=== PATIENT | male | born 1955 | race Caucasian/White ===

== ENCOUNTER 2019-08-29 19:59 | Inpatient (IN) | payer MEDICARE, SELFPAY ==
[2019-08-29] VITALS (22 sets, daily range): BP systolic 116–145; BP diastolic 68–80; PULSE 61–76; RESP 9–18; TEMP 36.5–36.9; O2SAT 88–100
[2019-08-29] MEDS: Ketorolac 15 MG/ML VIAL IVP (20:10)
--- NOTE | 2019-08-29 20:13 | ED.GENADUL_ITS ---
Discharge Plan Disposition Patient Disposition: [facility] INPATIENT Condition: Stable Discharge Details Chief Complaint: Abd Prob Clinical Impression: Bowel obstruction Primary Care Provider: Olvin Alicia ED Provider: Brian Hickey Home Meds and New Rx's Prescriptions: New oxycodone 5 mg tablet 5 mg PO TID PRN (Reason: pain) Qty: 12 RF: 0 Continued celecoxib [Celebrex] 200 MG capsule 200 mg PO DAILY RF: 0 aspirin 325 MG tablet 325 mg PO DAILY RF: 0 tamsulosin [Flomax] 0.4 mg Capsule 0.4 mg PO DAILY RF: 0 bismuth subsalicylate [Pepto-Bismol] 262 mg/15 mL Suspension PRNRF: 0 metoprolol succinate 25 mg Tablet Extended Release 24 Hr 25 mg PO DAILY RF: 0 Medical Decision Making 64 yo male who has hx of arthritis, on metoprolol for pvc's per pt, no prior abdominal surgeries, comes in with mid to epigastric pain since yesterday that he has never had before. Denies radiation of pain, vomit, and can't think of anything that makes it better or worse. He does have epigastric pain and mid abdominal discomfort and ruq tenderness on exam, no lower abdominal tenderness. Given his degree of pain will obtian lab work and ct to eval for pancreatitis and choleystitis among other pathology. Pt remains stable and pain is gone. Lab work unremarkable. His CT shows partial low grade sbo. He has mild mid abdominal tendernress now without guarding. P atient initially wanted to go home but his pain significantly increased and prefers to stay will consult with general surgery Spoke with Dr. Saldivar who agrees on holding on NG tube. She requests hospitalist admission since unlikely surgical case. Spoke with Dr. Roger who accepts for admission Differential Diagnosis Differential Diagnosis: pancreatitis, acs, cholecystitis Imaging Data Radiologic Study: Attestation: I personally reviewed and interpreted this imaging study as follows: Imaging: CT Scan Radiologist's impression: IMPRESSION: Partial low grade small bowel obstruction involving predominantly loops of jejunum in the left hemiabdomen, with a gradual transition to nondistended small bowel at the level of the ileum. The nondistended distal ileal loops appear to have mild wall thickening and adjacent pericolonic stranding, which could be related to distal ileitis and perhaps the underlying cause of the low grade obstruction. Additionally, the dilated jejunal loops demonstrate fecalization, which raises the question of an extended time frame for the development of this partial SBO. There is no evidence of bowel perforation noted at this time. Close followup is recommended. Lab Data Lab results reviewed: Yes I reviewed the patient's lab results. ECG Data Attestation: I personally reviewed and interpreted this ECG (s) as follows: Prior ECG tracings: not available for review Interpretation: sinus rhythm, rate of 70, pr 166, no acute st t wave ischemic findings HPI General Mode of arrival: ambulatory . Date/Time Provider Initiated Documentation: 08/29/19 20:01 . Limitations to Documentation: no limitations . Information obtained by: patient . History of Present Illness 64 year old M presents to the emergency department with the chief complaint of abdominal pain, described as moderate and severe, with intensity rated at 9. Quality is described as sharp, and is localized to the abdomen. Patient reports no radiation. Patient started experiencing this day(s) (1) and it has been constant. No relieving factors improve symptom(s), No exacerbating factors reported . Patient notes no other symptoms.. Patient did receive the following treatments prior to arrival, none Related Data Home Medications Medication Instructions Recorded Confirmed aspirin 325 mg PO DAILY 07/10/16 08/29/19 celecoxib [Celebrex] 200 mg PO DAILY 07/10/16 08/29/19 bismuth subsalicylate mg PRN 08/29/19 [Pepto-Bismol] metoprolol succinate 25 mg PO DAILY 08/29/19 08/29/19 oxycodone 5 mg PO TID PRN #12 tab 08/29/19 tamsulosin [Flomax] 0.4 mg PO DAILY 08/29/19 08/29/19 Previous Rx's Medication Instructions Recorded oxycodone 5 mg PO TID PRN #12 tab 08/29/19 Allergies Allergy/AdvReac Type Severity Reaction Status Date / Time No Known Allergies Allergy Unverified 08/29/19 20:28 Review of Systems Review of Systems ROS Unobtainable: All systems reviewed & are unremarkable except as noted in HPI and below Constitutional Constitutional: Denies chills, Denies fever(s) and Denies weakness Cardiovascular Cardiovascular: Denies chest pain and Denies dyspnea Respiratory Respiratory: Denies dyspnea Gastrointestinal Gastrointestinal: Denies nausea Genitourinary Genitourinary: Denies dysuria Neurologic Neurologic: Denies weakness PFSH Social History Smoking/Tobacco Use Status: Former Tobacco Use Drug use: Never Do you feel safe at home: Yes Do you feel safe in your relationship?: Yes Exam Const General: no acute distress Orientation: alert HENMT Head: normal to inspection Ears: external ears normal General nose exam: external nose normal Mouth: moist mucous membranes Eyes General: appearance normal, both eyes and all related structures Neck Neck: normal visual inspection Resp Effort & Inspection: normal respiratory effort and able to speak in complete sentences Cardio Rate: regular rate GI Palpation: soft Skin General skin exam: no rashes or lesions noted Neuro General: alert and oriented x3 Extrem General: normal to inspection Psych Mental Status: mental status grossly normal
[2019-08-29] MEDS: Normal Saline 1,000 ML 1000 ML IV (20:18)
[2019-08-29 20:22] LABS: Abs Immature Grans 0.02 k/cumm (0.0-0.09); Absolute Basophil Count 0.02 k/cumm (0.0-0.2); Absolute Eosinophil Count 0.08 k/cumm (0.0-0.7); Absolute Lymphocyte Count 1.13 k/cumm (1.2-3.4); Absolute Monocyte Count 0.61 k/cumm (0.11-0.7); Absolute Neutrophil Count 6.69 k/cumm (1.2-6.7); Basophils % 0.2; Eosinophils % 0.9; HGB 14.6 g/dL (13.5-17.5); Immature Grans % 0.2; Lymphocytes % 13.2; Mean Corpuscular Hemoglobin 30.9 pg (27.0-33.0); Mean Corpuscular Volume 91.1 fL (80-95); Mean Platelet Volume 8.9 fL (8.0-11.0); Monocytes % 7.1; Neutrophils % 78.4; Platelet Count 251 x1000/uL (130-400); RBC 4.72 m/cumm (4.50-6.00); RBC Distribution Width 12.6 % (11.8-14.1); White Blood Cell Count 8.55 k/cumm (4.4-10.8)
[2019-08-29 20:36] LABS: PTT Activated 25.5 sec (21.0-31.4); Prothrombin Time 9.9 sec (9.3-11.0)
[2019-08-29 20:39] LABS: Bilirubin, Total 0.8 mg/dL (0.2-1.0)
[2019-08-29] MEDS: Omnipaque 350 MG/ML 100 ML BTL IJ (20:39)
[2019-08-29 20:43] LABS: ALT 25 U/L (16-63); AST 18 U/L (15-37); Alkaline Phosphatase 77 U/L (46-116); Anion Gap 8.7 mmol/L (3-11); BUN 18 mg/dL (7-18); Bilirubin, Total 0.8 mg/dL (0.2-1.0); CO2 25.3 mmol/L (21.0-32.0); CREATININE 1.34 mg/dL (0.70-1.30); Calcium 9.2 mg/dL (8.5-10.1); Chloride 105 mmol/L (98-107); Glucose 108 mg/dL (70-100); Lipase 67 U/L (73-393); Magnesium 1.8 mg/dL (1.8-2.4); Potassium 4.1 mmol/L (3.5-5.1); Sodium 139 mmol/L (136-145); Total Protein 8.1 g/dL (6.4-8.2)
--- NOTE | 2019-08-29 20:45 | DI.CT_ITS ---
EXAM: CT ABDOMEN PELVIS W CLINICAL HISTORY: mid abdominal pain. TECHNIQUE: Imaging Protocol: Axial computed tomography images with coronal and sagittal reformatted images were created and reviewed CONTRAST MATERIAL: Intravenous: Omnipaque 350 Contrast volume:100 mL contrast route:IV - Oral: No COMPARISON: No exams were available for comparison FINDINGS: ABDOMEN: Lung Bases: No acute pulmonary process is identified in the lung bases. There is a small hiatal molly ia. Liver: Normal density. No masses identified. Gallbladder and biliary tract: No radiodense calculus or dilation. Pancreas: There is no evidence of a pancreatic mass. There is mild fatty infiltration of the pancrea s. Spleen: Normal. Kidneys: Normal size, contour and axis. No radiodense stones or obstructive uropathy. Small parapelvi c cysts are present bilaterally. Adrenal glands: No masses seen. Abdominal Aorta: Abdominal portion non-dilated. Lymph nodes: Unremarkable. PELVIS: Bladder: Grossly unremarkable. There is limited visualization of the urinary bladder due to the patel fact related to the patient's bilateral total hip replacements. The reproductive organs are unremark able. Bowel: There are moderately dilated loops of small bowel proximally with normal caliber ileal loops o f bowel. There does appear to be mild wall thickening of the loops of small bowel. This may reflect an ileitis. There is mild stranding in the surrounding soft tissues. There is diverticulosis seen in the colon but no evidence of acute diverticulitis. There is no evidence of an acute appendicitis. Peritoneal cavity: There is a trace amount of free fluid in the pelvis. This is likely reactive. No focal fluid collection is seen to suggest an abscess. Bones: Multilevel degenerative changes are seen in the spine. Reproductive organs: Unremarkable as visualized. Impression: Findings suggestive of a small bowel obstruction with transition around the junction of the jejunum a nd ileum. Mild wall thickening and adjacent soft tissue stranding in the ileum suspicious for an ileitis. Follow-up is recommended. DATA REPOSITORY: All CT scans at this facility are submitted to the National Radiology Data Registry (NRDR) Dose Index Registry (DIR) with the [employer] ([employer]). RADIATION OPTIMIZATION: All CT scans at this facility use at least one of these dose optimization te chniques: automated exposure control; mA and/or kV adjustment per patient size (includes targeted exa ms where dose is matched to clinical indication); or iterative reconstruction.
[2019-08-29 20:55] LABS: Troponin I < 0.05 ng/mL (0.00-0.06)
--- NOTE | 2019-08-29 21:05 | DI.VRAD_ITS ---
PROCEDURE INFORMATION: Exam: CT Abdomen and pelvis with contrast Exam date and time: 08/29/2019 8:32 PM Clinical history: 64 years old, male; Localized; Prior surgery; Surgery date: 6+ months; Surgery type: Bilateral hips; Patient HX: Mid abdominal pain starting yesterday and increasing. TECHNIQUE: Imaging protocol: Computed tomography of the abdomen and pelvis with intravenous contrast. Radiation optimization: All CT scans at this facility use at least one of these dose optimization techniques: automated exposure control; mA and/or kV adjustment per patient size (includes targeted exams where dose is matched to clinical indication); or iterative reconstruction. Contrast material: OMNIPAQUE 350; Contrast volume: 100 ml; Contrast route: IV; COMPARISON: No relevant prior studies available. FINDINGS: Limitations: Evaluation of the pelvis is limited due to streak artifact from bilateral hip arthroplasty. Lungs: The visualized portions of the lung bases demonstrate no acute disease. Mediastinum: A small hiatal hernia is present. Liver: Normal. No mass. Gallbladder and bile ducts: Normal. No calcified stones. No ductal dilation. Pancreas: There is diffuse, benign fatty infiltration of the pancreas. Spleen: Normal. No splenomegaly. Adrenals: Normal. No mass. Kidneys and ureters: Left parapelvic renal cysts are appreciated. There is bilateral renal hilar lipomatosis. No acute renal findings. No obstructive uropathy. Stomach and bowel: There are several dilated loops of small bowel in the left hemiabdomen, measuring up to 3.8 cm in greatest diameter. There is fecalization noted to several of these dilated bowel loops. There is a gradual transition to nondistended small bowel, with several collapsed small bowel loops in the right lower quadrant demonstrating wall thickening, subtle mucosal hyperenhancement, and mild engorgement of the vasa recta. Appendix: No evidence of appendicitis. Intraperitoneal space: Trace abdominopelvic ascites are present, most likely reactive. No fluid collections are appreciated. No pneumoperitoneum. Vasculature: The vasculature demonstrates diffuse moderate atherosclerotic calcification. Lymph nodes: Unremarkable. No enlarged lymph nodes. Bladder: Urinary bladder is difficult to evaluate due to streak artifact, however the visualized segments appear unremarkable. Reproductive: Unremarkable as visualized. Bones/joints: No acute skeletal pathology. Moderate multilevel degenerative changes of the spine, as manifested by multilevel anterior osteophytes and multilevel decrease in intervertebral disc space. Soft tissues: Unremarkable. IMPRESSION: Partial low grade small bowel obstruction involving predominantly loops of jejunum in the left hemiabdomen, with a gradual transition to nondistended small bowel at the level of the ileum. The nondistended distal ileal loops appear to have mild wall thickening and adjacent pericolonic stranding, which could be related to distal ileitis and perhaps the underlying cause of the low grade obstruction. Additionally, the dilated jejunal loops demonstrate fecalization, which raises the question of an extended time frame for the development of this partial SBO. There is no evidence of bowel perforation noted at this time. Close followup is recommended. THIS REPORT CONTAINS FINDINGS THAT MAY BE CRITICAL TO PATIENT CARE. The findings were verbally communicated via telephone conference with Brian Hickey at 9:04 PM EDT on 08/29/2019. The findings were acknowledged and understood. Dictated and Authenticated by: Paul Jolly MD. Ordering:RANDALL Torres MD
[2019-08-29] MEDS: HYDROmorphone 2 MG/ML VIAL 1 MG IVP (21:46)
[2019-08-29] MEDS: Normal Saline 1,000 ML 150 ML IV (22:09)
[2019-08-29] MEDS: Metoprolol CR 25 MG TABCR PO (23:59)
[2019-08-30] MEDS: Pantoprazole 40 MG VIAL IVP ×2 (00:01→23:59)
[2019-08-30] MEDS: Heparin 5,000 UNITS/ML VIAL 5000 UNITS SC ×4 (00:01→23:59)
[2019-08-30] MEDS: Acetaminophen 325 MG TAB PO (00:19)
[2019-08-30 03:00] VITALS: BP 106/61; PULSE 55; RESP 17; TEMP 36.2; O2SAT 99
[2019-08-30] MEDS: HYDROmorphone 2 MG/ML VIAL 1 MG IVP ×5 (03:06→18:14)
[2019-08-30] MEDS: Normal Saline Flush 10 ML SYR ×2 (03:07)
[2019-08-30] MEDS: Normal Saline 1,000 ML 150 ML IV ×3 (04:24→18:15)
[2019-08-30 07:09] LABS: Abs Immature Grans 0.01 k/cumm (0.0-0.09); Absolute Basophil Count 0.01 k/cumm (0.0-0.2); Absolute Lymphocyte Count 1.41 k/cumm (1.2-3.4); Absolute Monocyte Count 0.41 k/cumm (0.11-0.7); Absolute Neutrophil Count 3.42 k/cumm (1.2-6.7); Basophils % 0.2; Eosinophils % 1.9; HCT 38.3 % (40.0-50.0); Immature Grans % 0.2; Lymphocytes % 26.3; Mean Corp. HGB Concentration 33.9 g/dL (32.0-36.0); Mean Corpuscular Hemoglobin 31.4 pg (27.0-33.0); Mean Corpuscular Volume 92.5 fL (80-95); Mean Platelet Volume 9.1 fL (8.0-11.0); Monocytes % 7.6; Neutrophils % 63.8; Platelet Count 224 x1000/uL (130-400); RBC 4.14 m/cumm (4.50-6.00); RBC Distribution Width 12.6 % (11.8-14.1); White Blood Cell Count 5.36 k/cumm (4.4-10.8)
--- NOTE | 2019-08-30 07:26 | HPE_ITS ---
Date of service: 08/30/19 Time of Service: 07:26 Assessment and Plan Assessment and plan (1) Partial small bowel obstruction: Status: Acute Assessment and plan: Consult general surgery. Patient is NPO. Clinically, does not appear to be requiring emergent surgical intervention. (2) DALE (dyspnea on exertion): Status: Acute Assessment and plan: Given h/o PVC's, will obtain an echo. Will need a nuclear stress test once the acute intraabdominal issue has resolved. (3) Chest pain: Status: Acute Assessment and plan: Episodic subcostal L-sided chest pain, on and off for 18 months. EKG negative, and chest pain is not associated with presentation to the hospital on this admission. No need for trending troponins, but would benefit from an echo and an outpatient stress test. If ischemic workup is negative, given a strong family history of thromboembolic disease, consider a CTA vs VQ scan of the chest (VQ scan is better for chronic thromboembolic disease). Also, check fasting lipid panel. Continue ASA, metoprolol. (4) HTN (hypertension), benign: Status: Acute Assessment and plan: Continue metoprolol. (5) PVCs (premature ventricular contractions): Status: Acute Assessment and plan: As above - obtain an echo, continue metoprolol. (6) DVT prophylaxis: Status: Acute Assessment and plan: Heparin SC, TEDs, SCDs (7) Discharge planning issues: Status: Acute Assessment and plan: Full code History of Present Illness History of Present Illness Chief Complaint: Abdominal pain Narrative: Mr King is a 64 year old male with PMHx of TIA in 2010, on asa 325 mg every other day and not on cholesterol therapy, as well as HTN, PVC's, BPH, Osteoarthritis, who presented to [facility] ED yesterday evening after about 24 hours of epigastric abdominal pain. The patient states that the pain started the night before last. At 8 am yesterday, he had three bowel movements (unusual for him), first being solid, and the other two being diarrhea. He did not look at the bowel movements to see what color they were. Since then, he had not passed gas or had another bowel movement. He denies any nausea or vomiting. The pain was tolerable (4/10) until the patient ate his first meal of the day at 3 pm (a bagel). By 5 pm, he states the pain was so bad he was doubled over. Because of this pain, he left his bowling game and initially planned on driving home to [place], but then turned around and drove himself to the hospital. Here, he was found to have a partial low grade small bowel obstruction. The patient was admitted to the hospitalist medicine service with general surgery seeing the patient in consultation. By the time I am seeing him, he is pain free and comfortable. Of note, other than bilateral inguinal surgery repairs, the patient has not had any intraabdominal surgeries. He has a strong family history of colon cancer. His last colonoscopy 6 years ago revealed a polyp which could not be resected. He has had difficulty getting a repeat colonoscopy. Additionally, the patient reports occasional L-sided chest pain (points to the area under the left ribs when talking about this) for the last 18 months and worsening dyspnea on exertion for the last 3 months. He is not having either the chest pain nor shortness of breath at this time. He is not sure if he has had an echocardiogram - it would have been at the [facility]. He has had several stress tests, the last one being in 2010 (EKG stress test). He has never had a nuclear stress test. Review of Systems Review of Systems Narrative: 12 systems reviewed. Pertinent positives and negatives are as per HPI. [facility] Medical History (Updated 08/30/19 @ 07:55 by Halie Roger MD) BPH (benign prostatic hyperplasia) (Chronic) HTN (hypertension), benign (Acute) Obesity (BMI 30-39.9) (Acute) Osteoarthritis (Chronic) PVCs (premature ventricular contractions) (Acute) TIA (transient ischemic attack) (Acute) Surgical History (Updated 08/30/19 @ 07:42 by Halie Roger MD) H/O arthroscopy of shoulder (Acute) multiple bilateral arthroscopies H/O bilateral inguinal hernia repair (Acute) H/O colonoscopy with polypectomy (Acute) x2; last 6 years ago, a polyp could not be removed H/O hand surgery (Acute) H/O prostate biopsy (Acute) History of ankle surgery (Acute) History of revision of total replacement of left knee joint (Acute) History of tonsillectomy (Chronic) History of total left hip replacement (Acute) History of total left knee replacement (Acute) History of total right hip arthroplasty (Acute) Rupture of biceps tendon (Acute) left, s/p repair S/P bilateral cataract extraction (Acute) S/P right knee arthroscopy (Acute) Family History (Updated 08/30/19 @ 07:45 by Halie Roger MD) Father Heart disease stents placed in the 60's Factor 5 Leiden mutation, heterozygous Hyperlipidemia Hypertension Colon cancer Lung cancer Bladder cancer Sister Factor 5 Leiden mutation, heterozygous Hypertension Cancer with unknown primary site Sister Factor 5 Leiden mutation, heterozygous Hypertension Sister Factor 5 Leiden mutation, heterozygous Brother Factor 5 Leiden mutation, heterozygous Maternal Grandmother Stroke Maternal Uncle Colon cancer Maternal Grandfather Colon cancer Paternal Grandmother Spinal cord cancer Social History (Updated 08/30/19 @ 07:46 by Halie Roger MD) Smoking/Tobacco Use Status: Former Tobacco Use Alcohol Intake: current Alcohol Intake frequency: holidays/special occasions only Alcohol type: beer Drug use: Never Do you feel safe at home: Yes Do you feel safe in your relationship?: Yes Meds Home Medications and Allergies Home Medications Medication Instructions Recorded Confirmed Type aspirin 325 mg PO DAILY 07/10/16 08/29/19 History celecoxib [Celebrex] 200 mg PO DAILY 07/10/16 08/29/19 History metoprolol succinate 25 mg PO DAILY@1700 08/29/19 08/30/19 History tamsulosin [Flomax] 0.4 mg PO HS 08/29/19 08/30/19 History finasteride 5 mg PO DAILY 08/30/19 08/30/19 History Allergies Allergy/AdvReac Type Severity Reaction Status Date / Time No Known Allergies Allergy Unverified 08/29/19 20:28 Exam Narrative Exam Narrative: General: Very pleasant obese male, laying comfortably flat in bed Neurological: A&OX3, no focal deficits Psychiatric: appropriate speech pattern/content Skin: intact HEENT: Atraumatic, normocephalic, EOMI, dry MM, Clear oropharynx, no submandibular or cervical lymphadenopathy, no goiter or JVD Cardiovascular: RRR, no m/r/g Lungs: CTAB Gastrointestinal: abdomen is soft, nondistended, + loud high pitched bowel sounds, nontender to palpation Extremities: no e/c/c BLE's, 1+ pedal pulses B Results Imaging Additional studies: CT abdomen/pelvis 08/29/19: Partial low grade small bowel obstruction involving predominantly loops of jejunum in the left hemiabdomen, with a gradual transition to nondistended small bowel at the level of the ileum. The nondistended distal ileal loops appear to have mild wall thickening and adjacent pericolonic stranding, which could be related to distal ileitis and perhaps the underlying cause of the low grade obstruction. Additionally, the dilated jejunal loops demonstrate fecalization, which raises the question of an extended time frame for the development of this partial SBO. There is no evidence of bowel perforation noted at this time. Close followup is recommended. EKG: NSR, HR 70, poor quality study, but no acute ischemia is seen Labs Result diagrams: 08/30/19 06:42 08/29/19 20:15 Labs: Laboratory Results - last 24 hr 08/29/19 08/29/19 08/29/19 20:15 20:15 20:15 WBC 8.55 RBC 4.72 Hgb 14.6 Hct 43.0 MCV 91.1 MCH 30.9 MCHC 34.0 RDW 12.6 Plt Count 251 MPV 8.9 Immature Gran % 0.2 Neutrophils % 78.4 Lymphocytes % 13.2 Monocytes % 7.1 Eosinophils % 0.9 Basophils % 0.2 Absolute Neutrophils 6.69 Absolute Lymphocytes 1.13 L Absolute Monocytes 0.61 Absolute Eosinophils 0.08 Absolute Basophils 0.02 PT 9.9 INR 1.0 APTT 25.5 Sodium 139 Potassium 4.1 Chloride 105 Carbon Dioxide 25.3 Anion Gap 8.7 BUN 18 Creatinine 1.34 H Estimated GFR/1.73 m2 53.50 Glucose 108 H Calcium 9.2 Magnesium 1.8 Total Bilirubin 0.8 AST 18 ALT 25 Alkaline Phosphatase 77 Troponin I < 0.05 Total Protein 8.1 Albumin 4.0 Lipase 67 L 08/29/19 08/30/19 20:15 06:42 WBC 5.36 D RBC 4.14 L Hgb 13.0 L Hct 38.3 L MCV 92.5 MCH 31.4 MCHC 33.9 RDW 12.6 Plt Count 224 MPV 9.1 Immature Gran % 0.2 Neutrophils % 63.8 Lymphocytes % 26.3 Monocytes % 7.6 Eosinophils % 1.9 Basophils % 0.2 Absolute Neutrophils 3.42 Absolute Lymphocytes 1.41 Absolute Monocytes 0.41 Absolute Eosinophils 0.10 Absolute Basophils 0.01 PT INR APTT Sodium Potassium Chloride Carbon Dioxide Anion Gap BUN Creatinine Estimated GFR/1.73 m2 Glucose Calcium Magnesium Total Bilirubin 0.8 AST ALT Alkaline Phosphatase Troponin I Total Protein Albumin Lipase Last Vital Signs Temp 36.2 C L 08/30/19 03:00 Pulse 55 L 08/30/19 03:00 Resp 17 08/30/19 03:00 BP 106/61 08/30/19 03:00 Pulse Ox 99 08/30/19 03:00
[2019-08-30 07:27] LABS: Anion Gap 6.1 mmol/L (3-11); BUN 18 mg/dL (7-18); CO2 23.9 mmol/L (21.0-32.0); CREATININE 1.15 mg/dL (0.70-1.30); Calcium 7.9 mg/dL (8.5-10.1); Chloride 110 mmol/L (98-107); Glucose 96 mg/dL (70-100); Magnesium 1.9 mg/dL (1.8-2.4); Potassium 4.4 mmol/L (3.5-5.1); Sodium 140 mmol/L (136-145)
[2019-08-30 07:35] VITALS: BP 143/75; PULSE 54; RESP 18; TEMP 36.6; O2SAT 98
[2019-08-30] MEDS: Normal Saline Flush 10 ML SYR IVP ×3 (08:53→15:18)
[2019-08-30] MEDS: Aspirin 325 MG TAB PO (08:53)
[2019-08-30] MEDS: Finasteride 5 MG TAB PO (08:53)
[2019-08-30] MEDS: Celecoxib 200 MG CAP PO (08:53)
[2019-08-30] MEDS: Magnesium Oxide 400 MG TAB PO (08:53)
[2019-08-30 08:58] LABS: Calculated LDL 94 mg/dL; Cholesterol 155 mg/dL (50-200); HDL Cholesterol 45 mg/dL (40-60); Triglyceride 84 mg/dL (30-150)
--- NOTE | 2019-08-30 09:31 | W.SURGCON ---
Date of service: 08/30/19 Time of Service: 09:31 Assessment and Plan Assessment and plan (1) Partial small bowel obstruction: Status: Acute Assessment and plan: The patient has not had prior abdominal surgery. Adhesions are still possible but not as likely. He appears to have an area of jejunum that is possibly chronically narrowed. With his large meal of fibrous foods, he may have impaction of a food bolus. NSAIDS can cause small bowel strictures related to inflammation. This issue will hopefully resolve with bowel rest. He continues to have some pain, so plan to keep NPO for now. I would not place an NG unless he develops persistent nausea/vomiting. His abdominal exam is fairly benign at this time. Will need further evaluation of the small bowel in the future - SBFT/capsule endoscopy/MRI History of Present Illness Narrative: This patient presented last evening with a 24 hour history of crampy abdominal pain that would double him over. No significant N/V. The pain started Thursday evening. He had a normal BM Thursday am. His bowels have been generally regular with one looser stool daily. No blood. Colonoscopy within the past few years showed a polyp. No FH IBD. He has never had this issue in the past. Ate more than 2 ears of corn and some garlic on Thursday. Does take Celebrex. No prior abdominal surgery CT reviewed. Shows some dilated small bowel in the left abdomen/jejunal area. Fecalization present. Review of Systems Constitutional Constitutional: Denies fatigue and Denies headache(s) Eyes Eyes: Denies change in vision ENT Ears, Nose, Mouth, and Throat: Denies headache(s) and Denies neck mass Cardiovascular Cardiovascular: Denies chest pain, Denies edema, Denies palpitations and Denies dyspnea Respiratory Respiratory: Denies cough, Denies dyspnea and Denies wheezing Gastrointestinal Gastrointestinal: Denies hematochezia Genitourinary Genitourinary: Denies dysuria Musculoskeletal Musculoskeletal: Denies joint swelling Integumentary/Breasts Skin/Breast: Denies new lesions and Denies rash Neurologic Neurologic: Denies confusion, Denies headache(s) and Denies focal weakness Psychiatric Psychiatric: Reports system reviewed and no additional complaints, except as docu and Denies confusion Endocrine Endocrine: Denies fatigue and Denies palpitations Hematologic/Lymphatic Hematologic/Lymphatic: Denies easy bleeding and Denies lymphadenopathy Allergic/Immunologic Allergic/Immunologic: Denies wheezing PFSH Medical History BPH (benign prostatic hyperplasia) (Chronic) HTN (hypertension), benign (Acute) Obesity (BMI 30-39.9) (Acute) Osteoarthritis (Chronic) PVCs (premature ventricular contractions) (Acute) TIA (transient ischemic attack) (Acute) Surgical History H/O arthroscopy of shoulder (Acute) multiple bilateral arthroscopies H/O bilateral inguinal hernia repair (Acute) H/O colonoscopy with polypectomy (Acute) x2; last 6 years ago, a polyp could not be removed H/O hand surgery (Acute) H/O prostate biopsy (Acute) History of ankle surgery (Acute) History of revision of total replacement of left knee joint (Acute) History of tonsillectomy (Chronic) History of total left hip replacement (Acute) History of total left knee replacement (Acute) History of total right hip arthroplasty (Acute) Rupture of biceps tendon (Acute) left, s/p repair S/P bilateral cataract extraction (Acute) S/P right knee arthroscopy (Acute) Family History Father Heart disease stents placed in the 60's Factor 5 Leiden mutation, heterozygous Hyperlipidemia Hypertension Colon cancer Lung cancer Bladder cancer Sister Factor 5 Leiden mutation, heterozygous Hypertension Cancer with unknown primary site Sister Factor 5 Leiden mutation, heterozygous Hypertension Sister Factor 5 Leiden mutation, heterozygous Brother Factor 5 Leiden mutation, heterozygous Maternal Grandmother Stroke Maternal Uncle Colon cancer Maternal Grandfather Colon cancer Paternal Grandmother Spinal cord cancer Social History Smoking/Tobacco Use Status: Former Tobacco Use Alcohol Intake: current Alcohol Intake frequency: holidays/special occasions only Alcohol type: beer Drug use: Never Do you feel safe at home: Yes Do you feel safe in your relationship?: Yes Exam Const General: healthy appearing and not in acute distress Nutritional Appearance: well nourished Orientation: oriented x3 HENMT Head: normal to inspection Eyes Sclera: sclerae normal Pupils: PERRL Neck Neck: no lymphadenopathy Thyroid: thyroid normal Resp Effort & Inspection: normal respiratory effort Auscultation: clear to auscultation bilaterally and no wheezes Cardio Rate: regular rate Rhythm: regular rhythm GI Inspection: non-distended Palpation: soft, no hepatosplenomegaly, no hernias and tender (mild LUQ/periumbilical) Skin General skin exam: no rashes or lesions noted Neuro General: alert Cognition: normal cognition Extrem General: normal to inspection Psych Affect: normal affect Attitude: cooperative Results Last Vital Signs Temp 97.9 F 08/30/19 07:35 Pulse 54 L 08/30/19 07:35 Resp 18 08/30/19 07:35 BP 143/75 H 08/30/19 07:35 Pulse Ox 98 08/30/19 07:35 Labs Result diagrams: 08/30/19 06:42 08/30/19 06:42 Labs: Laboratory Results - last 24 hr 08/29/19 08/29/19 08/29/19 20:15 20:15 20:15 WBC 8.55 RBC 4.72 Hgb 14.6 Hct 43.0 MCV 91.1 MCH 30.9 MCHC 34.0 RDW 12.6 Plt Count 251 MPV 8.9 Immature Gran % 0.2 Neutrophils % 78.4 Lymphocytes % 13.2 Monocytes % 7.1 Eosinophils % 0.9 Basophils % 0.2 Absolute Neutrophils 6.69 Absolute Lymphocytes 1.13 L Absolute Monocytes 0.61 Absolute Eosinophils 0.08 Absolute Basophils 0.02 PT 9.9 INR 1.0 APTT 25.5 Sodium 139 Potassium 4.1 Chloride 105 Carbon Dioxide 25.3 Anion Gap 8.7 BUN 18 Creatinine 1.34 H Estimated GFR/1.73 m2 53.50 Glucose 108 H Calcium 9.2 Magnesium 1.8 Total Bilirubin 0.8 AST 18 ALT 25 Alkaline Phosphatase 77 Troponin I < 0.05 Total Protein 8.1 Albumin 4.0 Triglycerides Total Cholesterol LDL Cholesterol, Calc HDL Cholesterol Lipase 67 L 08/29/19 08/30/19 08/30/19 20:15 06:42 06:42 WBC 5.36 D RBC 4.14 L Hgb 13.0 L Hct 38.3 L MCV 92.5 MCH 31.4 MCHC 33.9 RDW 12.6 Plt Count 224 MPV 9.1 Immature Gran % 0.2 Neutrophils % 63.8 Lymphocytes % 26.3 Monocytes % 7.6 Eosinophils % 1.9 Basophils % 0.2 Absolute Neutrophils 3.42 Absolute Lymphocytes 1.41 Absolute Monocytes 0.41 Absolute Eosinophils 0.10 Absolute Basophils 0.01 PT INR APTT Sodium 140 Potassium 4.4 Chloride 110 H Carbon Dioxide 23.9 Anion Gap 6.1 BUN 18 Creatinine 1.15 Estimated GFR/1.73 m2 >= 60.00 Glucose 96 Calcium 7.9 L Magnesium 1.9 Total Bilirubin 0.8 AST ALT Alkaline Phosphatase Troponin I Total Protein Albumin Triglycerides 84 Total Cholesterol 155 LDL Cholesterol, Calc 94 HDL Cholesterol 45 Lipase
[2019-08-30] MEDS: Calcium Carbonate 1.5 GM TAB PO ×2 (10:53→19:18)
[2019-08-30 12:25] VITALS: BP 125/71; PULSE 52; RESP 18; TEMP 36.3; O2SAT 97
--- NOTE | 2019-08-30 12:55 | DI.US_ITS ---
APPROVED REPORT EXAM: Comprehensive 2D, Doppler, and color-flow Echocardiogram Indications: DALE PVC's Left Ventricle The left ventricle is normal size. The left ventricular systolic function is normal. The left ventric ular ejection fraction is within the normal range. There is normal left ventricular wall thickness. T here is normal LV segmental wall motion. The left ventricular diastolic function is normal. The Left Ventricular Ejection Fraction is 60-65% Right Ventricle The right ventricle is normal size. The right ventricular systolic function is normal. Atria The left atrium size is normal. The right atrium size is normal. Aortic Valve The aortic valve is normal in structure. There is no aortic valvular stenosis. Mild aortic regurgitat ion. Mitral Valve The mitral valve is normal in structure. Mild mitral regurgitation. Tricuspid Valve The tricuspid valve is normal in structure. Mild tricuspid regurgitation. The RVSP is 40-45 mmHg. Pulmonic Valve The pulmonary valve is normal in structure. Mild pulmonic regurgitation. Great Vessels The aortic root is normal in size. Pericardium There is no pericardial effusion. 2D Dimensions IVSd 0.8 cm M: 0.6-1.2 PWd 0.8 cm M: 0.6 - 1.2 LVDd 5.9 cm M: 4.2 - 5.9 LVDs 3.7 cm M: 2.5 - 4.0 Aortic Root 3.4 cm M: 3.1 - 3.7 Left Atrium 4.1 cm M: 3.0 - 4.0 LVOT 2.2 cm (M/F) 1.5-2.5 Ascending Aorta 3.2 cm M: 2.6 - 3.4 LVEF (Hernandez's) 64.5 % M: 52 - 72 LV Volume 72.7 mL M: 62 - 150 LV Volume Index 30.9 mL/m2 M: 34 - 74 FS 37.3 % LV Diastology E/A Ratio 1.0 MED E' 0.1 (<0.07 m/s) LV E/e MED 7.8 (>14) LAT E' 0.1 (<0.1 m/s) LV E/e LAT 7.5 (>14) Aortic Valve LVOT Peak Etienne. 1.1 m/s LVOT Peak Gr. 4.5 mmHg LVOT Mean Gr. 2.7 mmHg LVOT VTI 0.3 m AO VTI 0.4 (0.18-0.25 m) MANI (VTI) 1.1 (2.5-4.5 cm2) Mitral Valve MV A Velocity 0.6 (0.4-1.3 m/s) E/A Ratio 1.0 MV Decel. Time 197.6 (160-240 msec) MV PHT 57.3 msec MVA PHT 3.8 cm2 Tricuspid Valve TR P. Velocity 3.1 m/s TR P. Gradient 39.2 mmHg Other Information Study Quality: Good Conclusion Left Ventricle : The left ventricle is normal size. There is normal left ventricular wall thickness. The left ventricular diastolic function is normal. The left ventricular systolic function is normal. The left ventricular ejection fraction is within the normal range. There is normal LV segmental wall motion. The Left Ventricular Ejection Fraction is 60-65% Right Ventricle : The right ventricle is normal size. The right ventricular systolic function is norm al. Atria : The left atrium size is normal. The right atrium size is normal. Aortic Valve : The aortic valve is normal in structure. There is no aortic valvular stenosis. Mitral Valve : The mitral valve is normal in structure. Aortic Valve : Mild aortic regurgitation. Mitral Valve : Mild mitral regurgitation. Tricuspid Valve : The tricuspid valve is normal in structure. Mild tricuspid regurgitation. The RVSP is 40-45 mmHg. Great Vessels : The aortic root is normal in size. Pericardium : There is no pericardial effusion. There is no structural abnormality significant enough to explain the patient's dyspnea on exertion.
--- NOTE | 2019-08-30 14:08 | PHARADMIT ---
Admission Pharmacy Clinical Review Partial small bowel obstruction Code Status Full Code Current Weight 117.9 kg Renally Cleared and Narrow Therapeutic Index Meds CrCl ~104.2 based on ABW QTc Value / Action Taken QTc 423 BP Control, Fever BP 125/71, HR 52, afebrile Electrolytes reviewed NA 140, K+ 4.4, Mag 1.9 DVT Prophylaxis Heparin juliet q8h Opiate Usage / Scheduled Bowel Regimen Ordered dilaudid prn, yes Plt/SCr for Heparin / Enoxaparin Plt 224, Scr 1.15 INR for Warfarin H/H stable, WBC/Bands H/H 13/38.3, WBC 5.36 Antibiotic appropriateness Cultures and Sensitivities Surgical ABX d/c within 24 hr DM control / Insulin Dosing Heart Failure (Check EF%) (JUSTIN's, B-Block, Diuretics) metoprolol IV to PO Switch Home Meds Reviewed yes, all ok Home Meds Not Ordered all ordered Comments Per sx consult: area of jejunum that is chronicall narrowed -- may have impaction of food; also NSAIDs can cause small bowel strictures related to inflammation; will hopefully resolve with bowel rest -- remain NPO for now
--- NOTE | 2019-08-30 14:47 | CHAPLAIN ---
Ryan was lying in bed when I visited. He said he is NPO and think he is waiting for a procedure, but I haven't been told anything. He said he doesn't have any family in the area and doesn't expect to have any visitors. I will continue to visit.
--- NOTE | 2019-08-30 14:53 | W.PM.PROGNOT ---
Date of Service Date of service: 08/30/19 Time of Service: 14:53 Assessment and Plan Assessment and plan (1) Partial small bowel obstruction: Status: Acute Assessment and plan: Noted on CT scan. General surgery saw the patient and recommends bowel rest with follow-up. No recommendation for NG tube at present unless the patient begins to have severe nausea/vomiting. Continue n.p.o. Continue IV fluids. (2) DALE (dyspnea on exertion): Status: Acute Assessment and plan: With history of PVCs. Echocardiogram completed, pending reading at this time. Would benefit from a nuclear stress test as an outpatient. (3) Chest pain: Status: Acute Assessment and plan: As above. No current chest pain. Consider VQ scan. Fasting lipids normal. Continue aspirin and metoprolol. (4) HTN (hypertension), benign: Status: Acute Assessment and plan: Blood pressure within an acceptable range. Continue metoprolol. (5) DVT prophylaxis: Status: Acute Assessment and plan: Subcutaneous heparin, teds and SCDs. (6) Discharge planning issues: Status: Acute Assessment and plan: He is a full code. This case was discussed with Dr. Gordillo who is in agreement. Subjective Subjective Interval history since last seen: Mr. King continues to report right upper quadrant and epigastric pain that extends to his entire abdomen if he does not take pain medication. He reports that the pain is intermittent and cramping. He is using IV dilaudid for pain, which helps. He is NPO. He denies nausea or vomiting. He has been ambulating. He also reports increased shortness of breath with exertion over the last 3 months. He denies cough, chest pain/pressure, palpitations and lower extremity edema. He was seen by general surgery who recommend bowel rest. He had an echocardiogram today, the results are currently pending. Exam Narrative Exam Narrative: General: Pleasant and cooperative, laying comfortably flat in bed, in no acute distress. Neurological: A&OX3, no focal deficits HEENT: Atraumatic, normocephalic, pupils equal and round, EOMI, mucous membranes moist. Cardiovascular: Heart has regular rate and rhythm, no murmur appreciated. Respiratory: Respirations even and unlabored, does not appear short of breath, lung sounds clear to auscultation bilaterally. Gastrointestinal: Positive bowel sounds x4 quadrants, abdomen is soft, mild tenderness on palpation of the right upper quadrant. Extremities: No clubbing, cyanosis or edema. Teds on bilaterally. Objective Objective Clinical Data: Abnormal lab results 08/29/19 08/29/19 08/30/19 Range/Units 20:15 20:15 06:42 RBC (4.50-6.00) m/cumm Hgb (13.5-17.5) g/dL Hct (40.0-50.0) % Absolute Lymphocytes 1.13 L (1.2-3.4) k/cumm Chloride 110 H (98-107) mmol/L Creatinine 1.34 H (0.70-1.30) mg/dL Glucose 108 H (70-100) mg/dL Calcium 7.9 L (8.5-10.1) mg/dL Lipase 67 L (73-393) U/L 08/30/19 Range/Units 06:42 RBC 4.14 L (4.50-6.00) m/cumm Hgb 13.0 L (13.5-17.5) g/dL Hct 38.3 L (40.0-50.0) % Absolute Lymphocytes (1.2-3.4) k/cumm Chloride (98-107) mmol/L Creatinine (0.70-1.30) mg/dL Glucose (70-100) mg/dL Calcium (8.5-10.1) mg/dL Lipase (73-393) U/L Vital Signs Temperature 36.3 C L 08/30/19 12:25 Temperature Source Tympanic 08/30/19 12:25 Pulse 52 L 08/30/19 12:25 Pulse Rhythm Regular 08/30/19 08:40 Pulse 63 08/29/19 21:31 Respiratory Rate 18 08/30/19 12:25 Respiratory Effort 08/30/19 08:40 Respiratory Depth Normal 08/30/19 08:40 Respiratory Pattern Normal 08/30/19 08:40 Blood Pressure 125/71 08/30/19 12:25 Blood Pressure Mean 84 08/29/19 21:31 Blood Pressure Position Supine 08/29/19 20:12 Pulse Oximetry 97 08/30/19 12:25 Oxygen Delivery Method Room Air 08/30/19 12:25 Oxygen Flow Rate 0 08/30/19 12:25 Pain Level 1 08/30/19 14:27 Comment 08/30/19 07:35 Intake & Output 08/29/19 08/30/19 08/30/19 23:59 11:59 23:59 Intake Total 999 Balance 999 Weight 119.9 kg 117.9 kg Intake: IV 999 Other: Urine Appearance Clear Clear Laboratory Results WBC 5.36 k/cumm (4.4-10.8) D 08/30/19 06:42 RBC 4.14 m/cumm (4.50-6.00) L 08/30/19 06:42 Hgb 13.0 g/dL (13.5-17.5) L 08/30/19 06:42 Hct 38.3 % (40.0-50.0) L 08/30/19 06:42 MCV 92.5 fL (80-95) 08/30/19 06:42 MCH 31.4 pg (27.0-33.0) 08/30/19 06:42 MCHC 33.9 g/dL (32.0-36.0) 08/30/19 06:42 RDW 12.6 % (11.8-14.1) 08/30/19 06:42 Plt Count 224 x1000/uL (130-400) 08/30/19 06:42 MPV 9.1 fL (8.0-11.0) 08/30/19 06:42 Immature Gran % 0.2 08/30/19 06:42 Neutrophils % 63.8 08/30/19 06:42 Lymphocytes % 26.3 08/30/19 06:42 Monocytes % 7.6 08/30/19 06:42 Eosinophils % 1.9 08/30/19 06:42 Basophils % 0.2 08/30/19 06:42 Absolute Neutrophils 3.42 k/cumm (1.2-6.7) 08/30/19 06:42 Absolute Lymphocytes 1.41 k/cumm (1.2-3.4) 08/30/19 06:42 Absolute Monocytes 0.41 k/cumm (0.11-0.7) 08/30/19 06:42 Absolute Eosinophils 0.10 k/cumm (0.0-0.7) 08/30/19 06:42 Absolute Basophils 0.01 k/cumm (0.0-0.2) 08/30/19 06:42 PT 9.9 sec (9.3-11.0) 08/29/19 20:15 INR 1.0 (0.9-1.1) 08/29/19 20:15 APTT 25.5 sec (21.0-31.4) 08/29/19 20:15 Sodium 140 mmol/L (136-145) 08/30/19 06:42 Potassium 4.4 mmol/L (3.5-5.1) 08/30/19 06:42 Chloride 110 mmol/L (98-107) H 08/30/19 06:42 Carbon Dioxide 23.9 mmol/L (21.0-32.0) 08/30/19 06:42 Anion Gap 6.1 mmol/L (3-11) 08/30/19 06:42 BUN 18 mg/dL (7-18) 08/30/19 06:42 Creatinine 1.15 mg/dL (0.70-1.30) 08/30/19 06:42 Estimated GFR/1.73 m2 >= 60.00 (mL/min/1.73m2) 08/30/19 06:42 Glucose 96 mg/dL (70-100) 08/30/19 06:42 Calcium 7.9 mg/dL (8.5-10.1) L 08/30/19 06:42 Magnesium 1.9 mg/dL (1.8-2.4) 08/30/19 06:42 Total Bilirubin 0.8 mg/dL (0.2-1.0) 08/29/19 20:15 Total Bilirubin 0.8 mg/dL (0.2-1.0) 08/29/19 20:15 AST 18 U/L (15-37) 08/29/19 20:15 ALT 25 U/L (16-63) 08/29/19 20:15 Alkaline Phosphatase 77 U/L (46-116) 08/29/19 20:15 Troponin I < 0.05 ng/mL (0.00-0.06) 08/29/19 20:15 Total Protein 8.1 g/dL (6.4-8.2) 08/29/19 20:15 Albumin 4.0 g/dL (3.4-5.0) 08/29/19 20:15 Triglycerides 84 mg/dL (30-150) 08/30/19 06:42 Total Cholesterol 155 mg/dL (50-200) 08/30/19 06:42 LDL Cholesterol, Calc 94 mg/dL 08/30/19 06:42 HDL Cholesterol 45 mg/dL (40-60) 08/30/19 06:42 Lipase 67 U/L (73-393) L 08/29/19 20:15
[2019-08-30 15:48] VITALS: BP 99/59; PULSE 54; RESP 17; TEMP 36.2; O2SAT 97
--- NOTE | 2019-08-30 17:04 | PDOC.CMIN ---
- If Service Date Differs Date of service: 08/30/19 Time of Service: 17:04 Care Management Initial Assess REASON FOR HOSPITALIZATION:: Partial Small bowel obstruction PAST MEDICAL HISTORY/PAST SURGICAL HISTORY:: Medical History. BPH (benign prostatic hyperplasia) (Chronic). HTN (hypertension), benign (Acute). Obesity (BMI 30-39.9) (Acute). Osteoarthritis (Chronic). PVCs (premature ventricular contractions) (Acute). TIA (transient ischemic attack) (Acute). Surgical History. H/O arthroscopy of shoulder (Acute). multiple bilateral arthroscopies. H/O bilateral inguinal hernia repair (Acute). H/O colonoscopy with polypectomy (Acute). x2; last 6 years ago, a polyp could not be removed. H/O hand surgery (Acute). H/O prostate biopsy (Acute). History of ankle surgery (Acute). History of revision of total replacement of left knee joint (Acute). History of tonsillectomy (Chronic). History of total left hip replacement (Acute). History of total left knee replacement (Acute). History of total right hip arthroplasty (Acute). Rupture of biceps tendon (Acute). left, s/p repair. S/P bilateral cataract extraction (Acute). S/P right knee arthroscopy (Acute) PREVIOUS FUNCTIONAL STATUS/SOCIAL/FAMILY SUPPORTS:: Ryan lives in [place]. He is independent at baseline. CURRENT FUNCTIONAL STATUS:: CM was unable to meet with Ryan, as he was out of the room having testing done when CM attempted to meet, twice. ADVANCE DIRECTIVES:: None on file. Has patient been provided with information about the portal?: No Did the patient sign up for the portal?: No CODE STATUS:: Full Code INSURANCE COVERAGE / FINANCIAL ISSUES:: MCR/Commercial CURRENT HOME/COMMUNITY SERVICES/EQUIPMENT:: None identified at this time. PRIMARY CARE PHYSICIAN:: Olvin Caldwell POTENTIAL DISCHARGE NEEDS:: Evaluations for further needs, follow up appointments PATIENT/FAMILY EDUCATION NEEDS:: Review of community based supports, discharge plan, discussion of self care needs upon discharge including, Ask Me Three ANTICIPATED BARRIERS TO DISCHARGE:: None identified at this time. TRANSPORTATION:: Anticipate Ryan will transport via private vehicle, as he drove himself to the hospital. PLAN:: Anticipate Ryan will return home with no additional services. Anticipate he will have follow up appointments and will transport himself home. CM will continue to follow and support discharge planning.
[2019-08-30 19:19] VITALS: BP 114/64; PULSE 65; RESP 18; TEMP 37; O2SAT 98
[2019-08-30] MEDS: Tamsulosin 0.4 MG CAPCR PO (22:17)
[2019-08-31] MEDS: Normal Saline Flush 10 ML SYR IVP
[2019-08-31 00:03] VITALS: BP 137/66; PULSE 64; RESP 18; TEMP 36.4; O2SAT 96
[2019-08-31] MEDS: Normal Saline 1,000 ML 150 ML IV ×2 (00:30→06:42)
[2019-08-31 04:17] VITALS: BP 110/65; PULSE 63; RESP 18; TEMP 36.6; O2SAT 96
--- NOTE | 2019-08-31 07:11 | W.PM.PROGNOT ---
Date of Service Date of service: 08/31/19 Time of Service: 07:11 Assessment and Plan Assessment and plan (1) Partial small bowel obstruction: Status: Acute Assessment and plan: Patient expresses he is feeling better, (+) BMs and (+) Flatus. Denies any abdominal pain. Will trial regular diet for breakfast. If tolerating a regular diet, will D/C home later today. Subjective Subjective Interval history since last seen: Patient reports that Things passed last night. I had several BMs throughout the night and director quality assurance. He reports (+) Flatus since that time. Denies abd. pain. Exam Const General: cooperative, healthy appearing and comfortable Orientation: alert and oriented x3 Resp Effort & Inspection: normal respiratory effort, no audible wheezes and no cough GI Inspection: normal to inspection and non-distended Palpation: soft, no guarding and nontender Objective Objective Clinical Data: Abnormal lab results 08/30/19 08/30/19 Range/Units 06:42 06:42 RBC 4.14 L (4.50-6.00) m/cumm Hgb 13.0 L (13.5-17.5) g/dL Hct 38.3 L (40.0-50.0) % Chloride 110 H (98-107) mmol/L Calcium 7.9 L (8.5-10.1) mg/dL Vital Signs Temperature 36.6 C 08/31/19 04:17 Temperature Source Tympanic 08/31/19 04:17 Pulse 63 08/31/19 04:17 Pulse Rhythm Regular 08/31/19 02:35 Pulse 63 08/29/19 21:31 Respiratory Rate 18 08/31/19 04:17 Respiratory Effort 08/31/19 02:35 Respiratory Depth Normal 08/31/19 02:35 Respiratory Pattern Normal 08/31/19 02:35 Blood Pressure 110/65 08/31/19 04:17 Blood Pressure Mean 84 08/29/19 21:31 Blood Pressure Position Supine 08/29/19 20:12 Pulse Oximetry 96 08/31/19 04:17 Oxygen Delivery Method Room Air 08/31/19 04:17 Oxygen Flow Rate 0 08/31/19 04:17 Pain Level 0 08/31/19 04:17 Comment 08/30/19 15:48 Intake & Output 08/30/19 08/31/19 08/31/19 18:59 06:59 18:59 Intake Total 1921.5 / 7.5 185 / 7.5 Balance 1921.5 / 7.5 1854.5 Weight 117.9 kg 120 kg Intake: IV 1922.5 / 7.5 1857.5 Other: Urine Appearance Clear Stool Size Moderate Stool Characteristics Liquid Voiding Methods Toilet Laboratory Results WBC 5.36 k/cumm (4.4-10.8) D 08/30/19 06:42 RBC 4.14 m/cumm (4.50-6.00) L 08/30/19 06:42 Hgb 13.0 g/dL (13.5-17.5) L 08/30/19 06:42 Hct 38.3 % (40.0-50.0) L 08/30/19 06:42 MCV 92.5 fL (80-95) 08/30/19 06:42 MCH 31.4 pg (27.0-33.0) 08/30/19 06:42 MCHC 33.9 g/dL (32.0-36.0) 08/30/19 06:42 RDW 12.6 % (11.8-14.1) 08/30/19 06:42 Plt Count 224 x1000/uL (130-400) 08/30/19 06:42 MPV 9.1 fL (8.0-11.0) 08/30/19 06:42 Immature Gran % 0.2 08/30/19 06:42 Neutrophils % 63.8 08/30/19 06:42 Lymphocytes % 26.3 08/30/19 06:42 Monocytes % 7.6 08/30/19 06:42 Eosinophils % 1.9 08/30/19 06:42 Basophils % 0.2 08/30/19 06:42 Absolute Neutrophils 3.42 k/cumm (1.2-6.7) 08/30/19 06:42 Absolute Lymphocytes 1.41 k/cumm (1.2-3.4) 08/30/19 06:42 Absolute Monocytes 0.41 k/cumm (0.11-0.7) 08/30/19 06:42 Absolute Eosinophils 0.10 k/cumm (0.0-0.7) 08/30/19 06:42 Absolute Basophils 0.01 k/cumm (0.0-0.2) 08/30/19 06:42 PT 9.9 sec (9.3-11.0) 08/29/19 20:15 INR 1.0 (0.9-1.1) 08/29/19 20:15 APTT 25.5 sec (21.0-31.4) 08/29/19 20:15 Sodium 140 mmol/L (136-145) 08/30/19 06:42 Potassium 4.4 mmol/L (3.5-5.1) 08/30/19 06:42 Chloride 110 mmol/L (98-107) H 08/30/19 06:42 Carbon Dioxide 23.9 mmol/L (21.0-32.0) 08/30/19 06:42 Anion Gap 6.1 mmol/L (3-11) 08/30/19 06:42 BUN 18 mg/dL (7-18) 08/30/19 06:42 Creatinine 1.15 mg/dL (0.70-1.30) 08/30/19 06:42 Estimated GFR/1.73 m2 >= 60.00 (mL/min/1.73m2) 08/30/19 06:42 Glucose 96 mg/dL (70-100) 08/30/19 06:42 Calcium 7.9 mg/dL (8.5-10.1) L 08/30/19 06:42 Magnesium 1.9 mg/dL (1.8-2.4) 08/30/19 06:42 Total Bilirubin 0.8 mg/dL (0.2-1.0) 08/29/19 20:15 Total Bilirubin 0.8 mg/dL (0.2-1.0) 08/29/19 20:15 AST 18 U/L (15-37) 08/29/19 20:15 ALT 25 U/L (16-63) 08/29/19 20:15 Alkaline Phosphatase 77 U/L (46-116) 08/29/19 20:15 Troponin I < 0.05 ng/mL (0.00-0.06) 08/29/19 20:15 Total Protein 8.1 g/dL (6.4-8.2) 08/29/19 20:15 Albumin 4.0 g/dL (3.4-5.0) 08/29/19 20:15 Triglycerides 84 mg/dL (30-150) 08/30/19 06:42 Total Cholesterol 155 mg/dL (50-200) 08/30/19 06:42 LDL Cholesterol, Calc 94 mg/dL 08/30/19 06:42 HDL Cholesterol 45 mg/dL (40-60) 08/30/19 06:42 Lipase 67 U/L (73-393) L 08/29/19 20:15
[2019-08-31 07:29] LABS: HCT 39.6 % (40.0-50.0); HGB 13.1 g/dL (13.5-17.5); Mean Corp. HGB Concentration 33.1 g/dL (32.0-36.0); Mean Corpuscular Hemoglobin 30.8 pg (27.0-33.0); Mean Platelet Volume 9.4 fL (8.0-11.0); Platelet Count 217 x1000/uL (130-400); RBC 4.26 m/cumm (4.50-6.00); RBC Distribution Width 12.4 % (11.8-14.1); White Blood Cell Count 4.84 k/cumm (4.4-10.8)
[2019-08-31 07:45] LABS: ALT 16 U/L (16-63); AST 12 U/L (15-37); Albumin 2.9 g/dL (3.4-5.0); Alkaline Phosphatase 64 U/L (46-116); Anion Gap 10.5 mmol/L (3-11); BUN 14 mg/dL (7-18); Bilirubin, Total 1.2 mg/dL (0.2-1.0); CO2 22.5 mmol/L (21.0-32.0); CREATININE 1.01 mg/dL (0.70-1.30); Calcium 7.9 mg/dL (8.5-10.1); Chloride 106 mmol/L (98-107); Glucose 79 mg/dL (70-100); Potassium 4.1 mmol/L (3.5-5.1); Sodium 139 mmol/L (136-145); Total Protein 6.5 g/dL (6.4-8.2)
[2019-08-31] MEDS: Aspirin 325 MG TAB PO (09:33)
[2019-08-31] MEDS: Celecoxib 200 MG CAP PO (09:33)
[2019-08-31] MEDS: Finasteride 5 MG TAB PO (09:33)
[2019-08-31] MEDS: Calcium Carbonate 1.5 GM TAB PO (09:33)
[2019-08-31] MEDS: Heparin 5,000 UNITS/ML VIAL 5000 UNITS SC (09:46)
[2019-08-31 11:10] VITALS: BP 125/90; PULSE 68; RESP 14; TEMP 36.7; O2SAT 98
--- NOTE | 2019-08-31 11:30 | DSE_ITS ---
Date of service: 08/31/19 Time of Service: 11:30 DS: Diagnosis Discharge Diagnosis (1) Partial small bowel obstruction: Status: Acute (2) DALE (dyspnea on exertion): Status: Acute Discharge Plan Disposition Patient Disposition: HOME Condition: Stable Discharge Details Chief Complaint: Abd Prob Clinical Impression: Bowel obstruction Reason For Visit: PARTIAL SMALL BOWEL OBSTRUCTION Admit Date/Time: 08/29/19 21:58 Admit Provider: Halie Roger Attending Provider: Halie Roger Primary Care Provider: Olvin Alicia ED Provider: Brian Hickey [facility] Hospital Course: Ryan King is a very pleasant 64 year old man with a past medical history significant for HTN, TIA in 2010 on aspirin, PVCs, BPH and osteoarthritis who presented to the [facility] ED on 08/29/19 with reports of right upper quadrant abdominal and epigastric pain. His labs showed mildly elevated creatinine at 1.34, lipase was low at 67, normal white blood cell count. He had a CT abdomen which showed Findings suggestive of a small bowel obstruction with transition around the junction of the jejunum and ileum. Mild wall thickening and adjacent soft tissue stranding in the ileum suspicious for an ileitis. He was admitted to the med/surg floor with a surgical consult. He was seen by General surgery who recommended that he remain NPO, hold NSAIDs. Dr. Saldivar did not recommend NG tube unless he developed persistent nausea and vomiting. She recommends outpatient follow up for evaluation of the small bowel. He was continued on bowel rest. The evening prior to his discharge, he began to pass flatus. He had loose stools through the night. Surgery ordered a regular diet for breakfast, which he ate and tolerated. General surgery clears him for discharge with outpatient follow up. It was also noted on admission that the patient has had increasingly worsening dyspnea on exertion for the last 3 months. He also reported some occasional left-sided chest pain. Due to these reports, he also had an echocardiogram which showed LVEF of 60-65%, normal diastolic function, mild aortic valve regurgitation, mild mitral regurgitation, mild tricuspid regurgitation, mild pulmonic regurgitation. He has no shortness of breath or chest pain at this time. He will be referred for a cardiac stress test as an outpatient. If his stress test is negative, consider further evaluation for possible thromboembolic disease with CTA or VQ scan. Mr. King will follow up with his PCP as scheduled. He is scheduled to follow up with general surgery for further evaluation of his small bowel. He will have a cardiac stress test as an outpatient. Home Meds and New Rx's Prescriptions: New omeprazole 40 mg capsule,delayed release(DR/EC) 40 mg PO DAILY Qty: 30 RF: 0 Continued aspirin 325 MG tablet 325 mg PO DAILY RF: 0 tamsulosin [Flomax] 0.4 mg Capsule 0.4 mg PO HS RF: 0 metoprolol succinate 25 mg Tablet Extended Release 24 Hr 25 mg PO DAILY@1700 RF: 0 finasteride 5 mg Tablet 5 mg PO DAILY RF: 0 Discontinued celecoxib [Celebrex] 200 MG capsule 200 mg PO DAILY RF: 0 Discharge Instructions Instructions: Bowel Obstruction (DC) Additional Instructions: NSAIDs can contribute to small bowel obstruction, Celebrex is an NSAID, this should be avoided. Take Omeprazole to protect your stomach. Follow up with general surgery as scheduled. Stress test as an outpatient. Increase your diet slowly. Referrals: Alice Saldivar MD [ [facility] STAFF PHYSICIAN] - 09/19/19 9:30 am Olvin Alicia [Primary Care Provider] - 09/08/19 8:40 am Activity:: Activity as Tolerated Equipment/Supplies:: No Equipment Needed Diet:: advance slowly as tolerated. Discharge Orders Discharge Orders: Discharge Order (Routine); Ordered 08/31/19 Ordered By: Jazzy Zapien Other Ambulatory Orders: NM MPI rest & stress grp (Routine) Timeframe: 1 Day Location: None Selected Ordered By: Jazzy Zapien DS: Summary Status at Discharge Functional status at discharge: independent ambulation Overall status at discharge: patient is progressing back to baseline Mental Status: mental status grossly normal Speech and Movement: speech and movement normal Mood: congruent mood Affect: normal affect Exam Narrative Exam Narrative: General: Pleasant and cooperative, sitting up in the chair, in no acute distress. Neurological: A&OX3, no focal deficits HEENT: Atraumatic, normocephalic, pupils equal and round, EOMI, mucous membranes moist. Cardiovascular: Heart has regular rate and rhythm, no murmur appreciated. Respiratory: Respirations even and unlabored, does not appear short of breath, lung sounds clear to auscultation bilaterally. Gastrointestinal: Positive bowel sounds x4 quadrants, abdomen is soft, mild tenderness on palpation of epigastric region. Extremities: No clubbing, cyanosis or edema. Teds on bilaterally. Psych Mental Status: mental status grossly normal Speech and Movement: speech and movement normal Mood: congruent mood Affect: normal affect DS: Data Vitals/I&O Vitals and I&O: Vital Signs Temperature 36.7 C 08/31/19 11:10 Temperature Source Tympanic 08/31/19 11:10 Pulse 68 08/31/19 11:10 Pulse Rhythm Regular 08/31/19 09:48 Pulse 63 08/29/19 21:31 Respiratory Rate 14 08/31/19 11:10 Respiratory Effort 08/31/19 09:48 Respiratory Depth Normal 08/31/19 09:48 Respiratory Pattern Normal 08/31/19 09:48 Blood Pressure 125/90 08/31/19 11:10 Blood Pressure Mean 84 08/29/19 21:31 Blood Pressure Position Supine 08/29/19 20:12 Pulse Oximetry 98 08/31/19 11:10 Oxygen Delivery Method Room Air 08/31/19 11:10 Oxygen Flow Rate 0 08/31/19 11:10 Pain Level 0 08/31/19 11:10 Comment 08/30/19 15:48 Intake & Output 08/30/19 08/30/19 08/31/19 11:59 23:59 11:59 Intake Total 1922.5 / 2922.5 1000 / 2922.5 3785 / 3785 Balance 1922.5 / 2922.5 1000 / 2922.5 3785 / 3785 Weight 117.9 kg 118.3 kg Intake: IV 1922.5 / 2922.5 1000 / 2922.5 3785 / 3785 Other: Urine Appearance Clear Clear Clear Stool Size Moderate Stool Characteristics Liquid Voiding Methods Toilet Toilet Data Completed and Pending Completed studies during hospitalization [Text1]: 08/29/19: XAM: CT ABDOMEN PELVIS W CLINICAL HISTORY: mid abdominal pain. TECHNIQUE: Imaging Protocol: Axial computed tomography images with coronal and sagittal reformatted images were created and reviewed CONTRAST MATERIAL: Intravenous: Omnipaque 350 Contrast volume:100 mL contrast route:IV - Oral: No COMPARISON: No exams were available for comparison FINDINGS: ABDOMEN: Lung Bases: No acute pulmonary process is identified in the lung bases. There is a small hiatal hernia. Liver: Normal density. No masses identified. Gallbladder and biliary tract: No radiodense calculus or dilation. Pancreas: There is no evidence of a pancreatic mass. There is mild fatty infiltration of the pancreas. Spleen: Normal. Kidneys: Normal size, contour and axis. No radiodense stones or obstructive uropathy. Small parapelvic cysts are present bilaterally. Adrenal glands: No masses seen. Abdominal Aorta: Abdominal portion non-dilated. Lymph nodes: Unremarkable. PELVIS: Bladder: Grossly unremarkable. There is limited visualization of the urinary bladder due to the artifact related to the patient's bilateral total hip replacements. The reproductive organs are unremarkable. Bowel: There are moderately dilated loops of small bowel proximally with normal caliber ileal loops of bowel. There does appear to be mild wall thickening of the loops of small bowel. This may reflect an ileitis. There is mild stranding in the surrounding soft tissues. There is diverticulosis seen in the colon but no evidence of acute diverticulitis. There is no evidence of an acute appendicitis. Peritoneal cavity: There is a trace amount of free fluid in the pelvis. This is likely reactive. No focal fluid collection is seen to suggest an abscess. Bones: Multilevel degenerative changes are seen in the spine. Reproductive organs: Unremarkable as visualized. Impression: Findings suggestive of a small bowel obstruction with transition around the junction of the jejunum and ileum. Mild wall thickening and adjacent soft tissue stranding in the ileum suspicious for an ileitis. Follow-up is recommended. 08/30/19 EXAM: Comprehensive 2D, Doppler, and color-flow Echocardiogram Indications: DALE PVC's Left Ventricle The left ventricle is normal size. The left ventricular systolic function is normal. The left ventricular ejection fraction is within the normal range. There is normal left ventricular wall thickness. There is normal LV segmental wall motion. The left ventricular diastolic function is normal. The Left Ventricular Ejection Fraction is 60-65% Right Ventricle The right ventricle is normal size. The right ventricular systolic function is normal. Atria The left atrium size is normal. The right atrium size is normal. Aortic Valve The aortic valve is normal in structure. There is no aortic valvular stenosis. Mild aortic regurgitation. Mitral Valve The mitral valve is normal in structure. Mild mitral regurgitation. Tricuspid Valve The tricuspid valve is normal in structure. Mild tricuspid regurgitation. The RVSP is 40-45 mmHg. Pulmonic Valve The pulmonary valve is normal in structure. Mild pulmonic regurgitation. Great Vessels The aortic root is normal in size. Pericardium There is no pericardial effusion. Labs on day of discharge: Labs from last 24 hours 08/31/19 08/31/19 06:33 06:33 WBC 4.84 RBC 4.26 L Hgb 13.1 L Hct 39.6 L MCV 93.0 MCH 30.8 MCHC 33.1 RDW 12.4 Plt Count 217 MPV 9.4 Sodium 139 Potassium 4.1 Chloride 106 Carbon Dioxide 22.5 Anion Gap 10.5 BUN 14 Creatinine 1.01 Estimated GFR/1.73 m2 >= 60.00 Glucose 79 Calcium 7.9 L Total Bilirubin 1.2 H AST 12 L ALT 16 Alkaline Phosphatase 64 Total Protein 6.5 Albumin 2.9 L [facility] Medical History BPH (benign prostatic hyperplasia) (Chronic) HTN (hypertension), benign (Acute) Obesity (BMI 30-39.9) (Acute) Osteoarthritis (Chronic) PVCs (premature ventricular contractions) (Acute) TIA (transient ischemic attack) (Acute) Surgical History H/O arthroscopy of shoulder (Acute) multiple bilateral arthroscopies H/O bilateral inguinal hernia repair (Acute) H/O colonoscopy with polypectomy (Acute) x2; last 6 years ago, a polyp could not be removed H/O hand surgery (Acute) H/O prostate biopsy (Acute) History of ankle surgery (Acute) History of revision of total replacement of left knee joint (Acute) History of tonsillectomy (Chronic) History of total left hip replacement (Acute) History of total left knee replacement (Acute) History of total right hip arthroplasty (Acute) Rupture of biceps tendon (Acute) left, s/p repair S/P bilateral cataract extraction (Acute) S/P right knee arthroscopy (Acute) Family History Father Heart disease stents placed in the 60's Factor 5 Leiden mutation, heterozygous Hyperlipidemia Hypertension Colon cancer Lung cancer Bladder cancer Sister Factor 5 Leiden mutation, heterozygous Hypertension Cancer with unknown primary site Sister Factor 5 Leiden mutation, heterozygous Hypertension Sister Factor 5 Leiden mutation, heterozygous Brother Factor 5 Leiden mutation, heterozygous Maternal Grandmother Stroke Maternal Uncle Colon cancer Maternal Grandfather Colon cancer Paternal Grandmother Spinal cord cancer Social History Smoking/Tobacco Use Status: Former Tobacco Use Alcohol Intake: current Alcohol Intake frequency: holidays/special occasions only Alcohol type: beer Drug use: Never Do you feel safe at home: Yes Do you feel safe in your relationship?: Yes
--- NOTE | 2019-08-31 12:56 | PDOC.CMDIS ---
- If Service Date Differs Date of service: 08/31/19 Time of Service: 12:56 LACE Index Scoring Tool - Questions: Length of Stay (in days): 3 Acuity (Admit via E.D.?): Yes E.D. Visits: 1 - Answers: Total Score: 7 Risk of Readmission: Low Risk Care Management Discharge Reason for Hospitalization: Partial Small bowel obstruction Discharge Plan: Ryan will return home with no services at this time. He will transport himself home via private vehicle. Follow up appointment with PCP. Patient/Family Education Needs: Review discharge instructions, discussion of self care needs including Ask Me Three
== END 2019-08-31 14:11 | disposition home or self-care (01) | DRG 390 ==
LOC: ER 22:30 → MS 22:50
PROVIDERS: Nurse Practitioner; Admitting Provider Internal Medicine; Emergency Provider Emergency Medicine; PCP Internal Medicine; Visit Provider Internal Medicine
DX: K56.600 Partial intestinal obstruction, unspecified as to cause (principal); R06.00 Dyspnea, unspecified; R07.89 Other chest pain; I08.3 Combined rheumatic disorders of mitral, aortic and tricuspid valves; I10 Essential (primary) hypertension; Z86.73 Personal history of transient ischemic attack (TIA), and cerebral infarction without residual deficits; Z80.0 Family history of malignant neoplasm of digestive organs; Z86.010 Personal history of colon polyps; Z79.82 Long term (current) use of aspirin; N40.0 Benign prostatic hyperplasia without lower urinary tract symptoms; I49.3 Ventricular premature depolarization
CPT/HCPCS: 36415; 80048; 80053; 80061; 83690; 85027; 93005; 93306; 96361; 96365; 96375; 99222; 99223; 99231; 99232; 99233; 99239; 99254; 99285; 74177; 82247; 83735; 84484; 85025; 85610; 85730; 93010; J1644; J1885; J3490

== ENCOUNTER 2019-09-13 00:32 | Outpatient (CLI) | payer MEDICARE, SELFPAY ==
--- NOTE | 2019-09-13 12:04 | DI.NM_ITS ---
APPROVED REPORT Exam: Exercise Treadmill Patient Location: Out-Patient Stress Nurse: Radha Salcido RN Baseline Rhythm: Bradycardia BMI: 35.86 Indications: Dyspnea Medical History Medical History: HTN, Obesity , Stroke/TIA Cardiac Medications: Aspirin, Metoprolol Allergies: No known drug allergies Cardiac Risk Factors: HTN, SOB, FHX of CAD Pretest Chest Pain Characteristics: No chest pain Exercise History: Indeterminate Lung Sounds: Clear to auscultation Heart Sounds: Regular Stress Test Details Test: Exercise stress testing was performed using a Ryan protocol. Nuclear Acquisition: Rest Tc-99m/Stress Tc-99m 1 day Rest Isotope: Tc-99m Sestamibi. Dose: 12.6 Date: 09/13/2019 Injection Time: 0900 Stress Isotope: Tc-99m Sestamibi. Dose: 37.6 Date: 09/13/2019 Injection Time: 1040 HR Resting HR: 56 bpm Max Heart Rate (APMHR): 155 bpm Resting HR Supine: 56 bpm Target HR (85% APMHR): 131 bpm Resting HR Standin bpm Max HR Achieved: 179 bpm % of APMHR: 115 Recovery HR: 86 bpm HR response to stress: Normal HR response to stress BP Resting BP: 140/80 mmHg Resting BP Supine: 140/80 mmHg Resting BP Standin/80 mmHg Max BP: 188/90 mmHg Recovery BP: 126/60 mmHg BP response to stress: Normal blood pressure response to stress. ECG Resting ECG: Sinus Bradycardia Stress ECG: Sinus Tachycardia ST Change: Horizontal ST depression, Upsloping ST depression Lead(s): II, V2, V3, V4, V5, V6 Time of Change: 3:30 of excercise Stage: [address] Deviation: 0.5 mm Arrhythmia: APC's, VPC's Recovery ECG: Sinus Rhythm Recovery ST Change: Normal Time of Change: 6 mins recovery Stage: recovery Recovery Arrhythmia: apc's and pvc's no longer present by 5 mins recovery Clinical Time of Stop for Ryan: 9:00 Reason for Termination: Fatigue Stress Symptoms: Leg Fatigue Exercise duration: 9 min0 sec Highest Stage Achieved: Stage 3: 3.4 mph at 14% grade. Exercise capacity: 10.16 METs Functional Capacity: Above average capacity Scale: Sedentary Stress ECG Conclusion 1. The patient showed good exercise tolerance 2. There was no evidence of ischemia on ECG portion of the exam Test Summary supine 0 0 56 140/80 standing 00:00 0 0 63 138/80 98 1 03:00 10 1.7 102 4.64 144/78 2 03:00 12 2.5 129 7.05 160/82 3 02:59 14 3.4 179 10.16 188/90 1 min recovery 143 178/64 98 3 min recovery 94 176/60 6 min recovery 86 126/60 MPI Conclusion There was no evidence of stress perfusion defect Ejection Fraction = 44%. There was no TID This represents a normal SPECT exam. The Salgado Score ( 5) estimates an annual cardiovascular mortality of 0% and a five year survival of 95 % Using the Salgado Score there is a low probability of any angiographic coronary disease.
== END 2019-09-13 00:52 ==
PROVIDERS: PCP Internal Medicine; Visit Provider Internal Medicine
DX: R07.9 Chest pain, unspecified (principal); R06.09 Other forms of dyspnea; I10 Essential (primary) hypertension; E66.9 Obesity, unspecified; Z82.49 Family history of ischemic heart disease and other diseases of the circulatory system
CPT/HCPCS: 78452; 93016; 93018; 93017

== ENCOUNTER → 2019-09-19 09:25 | Outpatient (BNVA) | payer MEDICARE, SELFPAY | PROVIDERS: PCP Internal Medicine; Referring Provider Internal Medicine; Visit Provider Surgery | DX: K56.600 Partial intestinal obstruction, unspecified as to cause (principal) | CPT/HCPCS: 99213 ==

== ENCOUNTER 2019-09-21 07:07 | Outpatient (CLI) | payer MEDICARE, SELFPAY ==
--- NOTE | 2019-09-21 10:09 | DI.RAD_ITS ---
EXAM: RF SMALL BOWEL SERIES INDICATION: Evaluate small intestine, partial small bowel obstruction, K56.600. COMPARISON: No exams were available for comparison TECHNIQUE: 2D digital imaging was performed. FINDINGS: The plain images of the abdomen are unremarkable. The patient swallowed barium without difficulty. An initial image reveals no evidence of an abnormality involving the stomach. The duodenum and proxim al jejunum appear unremarkable. Delayed images were obtained at 55 minutes and demonstrate no small bowel abnormality. The barium is demonstrated in the distal ileum and proximal colon. IMPRESSION: Normal small-bowel follow-through.
== END 2019-09-21 07:27 ==
PROVIDERS: PCP Internal Medicine; Visit Provider Surgery
DX: K56.600 Partial intestinal obstruction, unspecified as to cause (principal)
CPT/HCPCS: 74250

== ENCOUNTER 2019-11-04 06:29 | Day surgery (SDC) | payer MEDICARE, SELFPAY ==
[2019-11-04 06:40] VITALS: BP 132/82; PULSE 67; RESP 16; TEMP 36.4; O2SAT 95
[2019-11-04] MEDS: Lactated Ringers 1,000 ML 80 ML IV (07:05)
--- NOTE | 2019-11-04 07:13 | W.PM.HP.N ---
Date of service: 11/04/19 Time of Service: 07:14 Assessment and Plan Assessment and plan (1) FH: colon cancer: Status: Acute Assessment and plan: I advised colonoscopy. The procedure was described including the risks of perforation with need for surgery or bleeding. Prep instructions discussed. Patient agrees to proceed. History of Present Illness Narrative: Colonoscopy 6-7 years ago showed a polyp per the patient. Report from 2014 reviewed and showed diverticulosis. EGD at the same time was normal with no evidence H pylori or celiac.. His father had colon cancer. Stress test recently showed no ischemia. ECHO showed normal EF and no valvular abnormalities. Review of Systems All systems reviewed & are unremarkable except as noted in HPI and below PFSH Medical History BPH (benign prostatic hyperplasia) (Chronic) HTN (hypertension), benign (Acute) Obesity (BMI 30-39.9) (Acute) Osteoarthritis (Chronic) PVCs (premature ventricular contractions) (Acute) TIA (transient ischemic attack) (Acute) Surgical History H/O arthroscopy of shoulder (Acute) multiple bilateral arthroscopies H/O bilateral inguinal hernia repair (Acute) H/O colonoscopy with polypectomy (Acute) x2; last 6 years ago, a polyp could not be removed H/O hand surgery (Acute) H/O prostate biopsy (Acute) History of ankle surgery (Acute) History of revision of total replacement of left knee joint (Acute) History of tonsillectomy (Chronic) History of total left hip replacement (Acute) History of total left knee replacement (Acute) History of total right hip arthroplasty (Acute) Rupture of biceps tendon (Acute) left, s/p repair S/P bilateral cataract extraction (Acute) S/P right knee arthroscopy (Acute) Family History Father Heart disease stents placed in the 60's Factor 5 Leiden mutation, heterozygous Hyperlipidemia Hypertension Colon cancer Lung cancer Bladder cancer Sister Factor 5 Leiden mutation, heterozygous Hypertension Cancer with unknown primary site Sister Factor 5 Leiden mutation, heterozygous Hypertension Sister Factor 5 Leiden mutation, heterozygous Brother Factor 5 Leiden mutation, heterozygous Maternal Grandmother Stroke Maternal Uncle Colon cancer Maternal Grandfather Colon cancer Paternal Grandmother Spinal cord cancer Social History Smoking/Tobacco Use Status: Former Tobacco Use Alcohol Intake: current Alcohol Intake frequency: holidays/special occasions only Alcohol type: beer Drug use: Never Substance use type: does not use Do you feel safe at home: Yes Do you feel safe in your relationship?: Yes Meds Home Medications and Allergies Home Medications Medication Instructions Recorded Confirmed Type aspirin 325 mg PO DAILY 07/10/16 11/04/19 History metoprolol succinate 25 mg PO DAILY@1700 08/29/19 11/04/19 History tamsulosin [Flomax] 0.4 mg PO HS 08/29/19 11/04/19 History finasteride 5 mg PO DAILY 08/30/19 11/04/19 History omeprazole 40 mg PO DAILY #30 cap 08/31/19 11/04/19 Rx bisacodyl 5 mg tablet,delayed 5 mg PO ONCE #4 tab 10/11/19 11/04/19 Rx release polyethylene glycol 3350 17 238 g PO ONCE #238 gm 10/11/19 11/04/19 Rx gram/dose oral powder Allergies Allergy/AdvReac Type Severity Reaction Status Date / Time No Known Allergies Allergy Unverified 11/02/19 10:21 Exam Const General: healthy appearing and not in acute distress Nutritional Appearance: well nourished Orientation: oriented x3 HENMT Head: normal to inspection Eyes Sclera: sclerae normal Pupils: PERRL Neck Neck: no lymphadenopathy Thyroid: thyroid normal Resp Effort & Inspection: normal respiratory effort Auscultation: clear to auscultation bilaterally and no wheezes Cardio Rate: regular rate Rhythm: regular rhythm GI Inspection: non-distended Palpation: soft, no hepatosplenomegaly, no hernias and nontender Skin General skin exam: no rashes or lesions noted Neuro General: alert Cognition: normal cognition Extrem General: normal to inspection Psych Affect: normal affect Attitude: cooperative Results Last Vital Signs Temp 97.5 F L 11/04/19 06:40 Pulse 67 11/04/19 06:40 Resp 16 11/04/19 06:40 BP 132/82 11/04/19 06:40 Pulse Ox 95 11/04/19 06:40
--- NOTE | 2019-11-04 07:19 | W.PM.DSUDISC ---
Discharge Plan Disposition Patient Disposition: HOME Condition: Good Discharge Details Reason For Visit: Colonoscopy Attending Provider: Alice Saldivar Primary Care Provider: Olvin Alicia Home Meds and New Rx's Prescriptions: Continued aspirin 325 MG tablet 325 mg PO DAILY RF: 0 tamsulosin [Flomax] 0.4 mg Capsule 0.4 mg PO HS RF: 0 metoprolol succinate 25 mg Tablet Extended Release 24 Hr 25 mg PO DAILY@1700 RF: 0 finasteride 5 mg Tablet 5 mg PO DAILY RF: 0 omeprazole 40 mg capsule,delayed release(DR/EC) 40 mg PO DAILY Qty: 30 RF: 0 Discontinued polyethylene glycol 3350 17 gram/dose powder 238 g PO ONCE Qty: 238 RF: 0 bisacodyl 5 mg tablet,delayed release (DR/EC) 5 mg PO ONCE Qty: 4 RF: 0 Discharge Instructions Additional Instructions: Findings: One small polyp was removed. My office will contact you with biopsy results. Follow up: Plan for a follow up colonoscopy in 5 years. Please call if you develop: fevers >101.5 Nausea or Vomiting Abdominal pain that is not transient DAY SURGERY UNIT POST COLONOSCOPY INSTRUCTIONS 1. Because there will be medication in your system for the next 24 hours, you may feel a little sleepy. Your coordination will be affected. Therefore: a. Do not drive or operate dangerous equipment for 24 hours. b. Do not drink alcohol beverages for 24 hours (not even beer). c. Plan to go home and rest for the day. 2. Generally there are no restrictions on your activity after a day or so has gone by, but you may feel a bit fatigued for a few days. 3 After you arrive home you may have a light meal and return to a normal diet as you can tolerate it without feeling sick to your stomach. 4. After surgery, you may feel pain or discomfort. This should be only transient, but if it persists please contact your doctor. 5. If there are any questions regarding the findings of your procedure, please feel free to contact your doctor. 6. If you are unable to contact your doctor with a problem, contact the hospital at [phone]. 7. Continue all your regular medications unless directed otherwise. I understand the above instructions and have no questions. Signature of Patient or Responsible Adult Escort Date/Time Name of Responsible Adult Escort Signature of Nurse Date/Time Stand Alone Forms: Colonoscopy Post Instructions, Fabricio Vines (DSU) Activity:: Activity as Tolerated Diet:: As Tolerated Discharge Orders Discharge Orders: Discharge Order (Routine); Ordered 11/04/19 Ordered By: Alice Saldivar DS: Diagnosis Discharge Diagnosis (1) FH: colon cancer: Status: Acute (2) Diverticulosis: Status: Acute (3) Colon polyp: Status: Acute
--- NOTE | 2019-11-04 07:51 | BOWEL_PTH ---
PATIENT: Ryan King LOC: [facility] U#:[id number] AGE/SX: 64/M ROOM: RE11/04/[address]: Alice Saldivar MD : [id number] BED: DIS: 11/04/2019 SPEC #: [id number] RECD: 11/04/19 12:23 STATUS: ANDREA REQ #: [id number] [place]: 11/04/19 07:[address]: Alice Saldivar DEPT: Surgical Specimen RECD BY: Jasmyn Oneill ENTERED: 11/04/19 12:23 SP TYPE: Bowel OTHR DR: Olvin Alicia Tissues: 1 - BIOPSY BOWEL Procedures: GROSS AND MICRO LEVEL 4 Comments: [id number]
[2019-11-04 08:26] VITALS: BP 118/65; PULSE 56; RESP 16; TEMP 36.6; O2SAT 97
--- NOTE | 2019-11-04 12:34 | COLE_ITS ---
DATE OF PROCEDURE: November 04, 2019 PREOPERATIVE DIAGNOSIS: Family history of colon cancer. POSTOPERATIVE DIAGNOSIS: 1. Mild diverticulosis. 2. Sigmoid polyp. PROCEDURE: Colonoscopy with cold forceps polypectomy. SURGEON: Alice Saldivar M.D. ANESTHESIA: General. INDICATIONS: This is a 64-year-old man who presents for a routine colonoscopy. His last one in 2013 showed diverticulosis. His father had colon cancer. PROCEDURE: He was placed in the left Brandon position. Propofol was titrated to sedation. Digital rec gumaro examination revealed no abnormalities. The scope was advanced to the cecum without difficulty. His prep was excellent. The ileocecal valve and appendiceal orifice were clearly identified. The pa tient was noted to have some scattered diverticula in the right colon. No other abnormalities were s een throughout the ascending, transverse or descending colon. The sigmoid region revealed mild diver ticular change. At 25 cm in the sigmoid colon there was a diminutive polyp that was removed with the cold forceps and sent to pathology. The rectum was normal, including on retroflex view. He tolerat ed the procedure well and was stable to recovery. He will need a follow-up colonoscopy again in five years. cc: Olvin Alicia D.O.
== END 2019-11-04 08:40 | disposition home or self-care (01) ==
PROVIDERS: PCP Internal Medicine; Visit Provider Surgery
PROC: 0DJD8ZZ Inspection of Lower Intestinal Tract, Via Natural or Artificial Opening Endoscopic (ICD-10-PCS; CPT 45378; principal; 2019-11-04 07:30)
DX: Z12.11 Encounter for screening for malignant neoplasm of colon (principal); D12.5 Benign neoplasm of sigmoid colon; K57.30 Diverticulosis of large intestine without perforation or abscess without bleeding; Z87.19 Personal history of other diseases of the digestive system; Z80.0 Family history of malignant neoplasm of digestive organs; I10 Essential (primary) hypertension
CPT/HCPCS: 45380; 88305; NC

== ENCOUNTER 2022-08-05 08:28 | Outpatient (CLI) | payer MEDICARE, SELFPAY ==
--- NOTE | 2022-08-05 08:15 | RT.EKG_ITS ---
APPROVED REPORT Exam: Resting ECG Reason for Exam: palpitations Patient Location: O HR:60 bpm ECG Measurements Heart Rate 60 AXIS HI 171 P 17 QRSd 101 QRS -6 QT 417 T 13 QTc 417 Conclusion Sinus rhythm...normal P axis, V-rate 50- 99 Normal Electrocardiogram
== END 2022-08-05 08:29 | disposition home or self-care (01) ==
LOC: DI.CARD 08:30
PROVIDERS: PCP Internal Medicine; Visit Provider Internal Medicine Cardiovascular Disease
DX: I49.3 Ventricular premature depolarization (principal); R00.2 Palpitations
CPT/HCPCS: 93010

== ENCOUNTER → 2022-08-05 09:25 | Outpatient (BNVA) | payer MEDICARE, SELFPAY | PROVIDERS: PCP Internal Medicine; Referring Provider Internal Medicine; Visit Provider Internal Medicine Cardiovascular Disease | DX: R00.2 Palpitations (principal); I49.3 Ventricular premature depolarization; I10 Essential (primary) hypertension; G47.33 Obstructive sleep apnea (adult) (pediatric) | CPT/HCPCS: 93005; 99203; 99214 ==

== ENCOUNTER 2022-12-23 14:02 | Emergency (ER) | payer MEDICARE, SELFPAY ==
[2022-12-23 14:08] VITALS: BP 153/78; PULSE 63; RESP 18; TEMP 36.9; O2SAT 98
--- NOTE | 2022-12-23 15:12 | DI.CT_ITS ---
Exam(s) CT HEAD WO EXAM: CT HEAD WO CLINICAL HISTORY: head injury. TECHNIQUE: Imaging Protocol: Axial computed tomography images with coronal and sagittal reformatted images were created and reviewed COMPARISON: No exams were available for comparison FINDINGS: There are no skull fractures. There is no fluid in the visualized paranasal sinuses. There is no evidence of intracranial hemorrhage, mass effect, or shift of midline structures. There are no extra-axial fluid collections. The ventricles are not enlarged or shifted and there is no blo od within the ventricular system nor within the basal cisterns. IMPRESSION: No acute intracranial findings on this noninfused CT scan of the brain. Called by myself to ER provider. RADIATION DOSE DELIVERED: 875.27mGy.cm Total DLP DATA REPOSITORY: All CT scans at this facility are submitted to the National Radiology Data Registry (NRDR) Dose Index Registry (DIR) with the [employer] ([employer]). RADIATION OPTIMIZATION: All CT scans at this facility use at least one of these dose optimization te chniques: automated exposure control; mA and/or kV adjustment per patient size (includes targeted exa ms where dose is matched to clinical indication); or iterative reconstruction.
--- NOTE | 2022-12-23 15:39 | ED.GENADUL_ITS ---
Discharge Plan Disposition Patient Disposition: Home Condition: Stable Discharge Details Clinical Impression: Concussion Primary Care Provider: Olvin Alicia ED Provider: Abdi Lakhani Home Meds and New Rx's Prescriptions: Continued amlodipine 5 mg tablet 5 mg PO DAILY atorvastatin 20 mg tablet 20 mg PO DAILY meloxicam 15 mg tablet 15 mg PO DAILY metoprolol succinate 50 mg tablet extended release 24 hr 50 mg PO DAILY aspirin 325 MG tablet 325 mg PO DAILY tamsulosin [Flomax] 0.4 mg Capsule 0.4 mg PO HS finasteride 5 mg Tablet 5 mg PO DAILY Discharge Instructions Instructions: Concussion (ED) Additional Instructions: You may continue to use [id number] pain medication as needed for discomfort. It is very important that you have both physical and mental rest over the next 3 days and slowly increase your activity as tolerated. We did place you on a follow-up list with your primary care provider to be seen next week for reassessment of your symptoms and to ensure you are appropriately improving. Return to the emergency department for any significant worsening of your condition. Referrals: Olvin Alicia [Primary Care Provider] - Discharge Data Discharge Date/Time-TO BE ENTERED AT DEPARTURE: 12/23/22 16:54 Medical Decision Making Patient presenting to the emergency department for chief complaint of headache and dizziness. This is occurred approximately 1 week ago after striking his head while working in his garage. Patient states he was fairly dazed after the event but denies any loss of consciousness, memory loss, nausea or vomiting. Physical exam is unremarkable for any acute findings. Given patient's age and continued symptoms we will perform head CT imaging. Patient denies any need for medication pending results. Review of CT imaging shows no worrisome findings. Feel that patient has concussive type symptoms. Patient was encouraged to rest both physically and mentally and slowly increase activity as tolerated. Patient to follow-up with primary care provider if not improving. After discussion of diagnosis and plan of care patient has no further needs, questions, or concerns and states clear understanding to return to the emergency department for any worsening symptoms. This documentation was generated using [employer] system, please disregard any oddities of phrase or misspellings. Imaging Data Radiologic Study: Imaging: CT Scan Radiologist's impression: Exam(s) a CT:CT head wo Exam(s) CT HEAD WO EXAM: CT HEAD WO CLINICAL HISTORY: head injury. TECHNIQUE: Imaging Protocol: Axial computed tomography images with coronal and sagittal reformatted images were created and reviewed COMPARISON: No exams were available for comparison FINDINGS: There are no skull fractures. There is no fluid in the visualized paranasal sinuses. There is no evidence of intracranial hemorrhage, mass effect, or shift of midl ine structures. There are no extra-axial fluid collections. The ventricles are not enlarged or shifted and there is no blood within the ventricular system nor within the basal cisterns. IMPRESSION: No acute intracranial findings on this noninfused CT scan of the brain. HPI General Mode of arrival: ambulatory . Date/Time Provider Initiated Documentation: 12/23/22 14:03 . Limitations to Documentation: no limitations . Information obtained by: patient and RN notes reviewed . History of Present Illness 67 year old M presents to the emergency department with the chief complaint of Head injury, described as mild, with intensity rated at 3. Quality is described as aching, and is localized to the head. Patient reports no radiation. Patient started experiencing this week(s) (1) and it has been intermittent. No relieving factors improve symptom(s), Movement worsens symptoms . Patient notes headaches; denies confusion, syncope and weakness. Patient did receive the following treatments prior to arrival, none Related Data Home Medications Medication Instructions Recorded Confirmed aspirin 325 mg tablet 325 mg PO DAILY 07/10/16 12/23/22 tamsulosin 0.4 mg capsule (Flomax) 0.4 mg PO HS 08/29/19 12/23/22 finasteride 5 mg tablet 5 mg PO DAILY 08/30/19 12/23/22 amlodipine 5 mg tablet 5 mg PO DAILY 05/14/22 12/23/22 atorvastatin 20 mg tablet 20 mg PO DAILY 05/14/22 12/23/22 meloxicam 15 mg tablet 15 mg PO DAILY 05/14/22 12/23/22 metoprolol succinate 50 mg 50 mg PO DAILY 05/14/22 12/23/22 tablet,extended release 24 hr Allergies Allergy/AdvReac Type Severity Reaction Status Date / Time No Known Allergies Allergy Verified 12/23/22 14:14 General Stated Complaint: Headache MARIA G: 3 Review of Systems Constitutional Constitutional: Denies body ache(s), Denies chills, Denies fever(s) and Reports headache(s) Eyes Eyes: Denies change in vision ENT Ears, Nose, Mouth, and Throat: Reports dizziness, Reports headache(s) and Denies neck pain Cardiovascular Cardiovascular: Denies chest pain and Denies syncope Respiratory Respiratory: Reports system reviewed and no additional complaints, except as documented Gastrointestinal Gastrointestinal: Denies nausea and Denies vomiting Musculoskeletal Musculoskeletal: Denies abnormal gait, Denies back pain and Denies neck pain Neurologic Neurologic: Reports as per HPI, Denies abnormal movements, Denies abnormal speech, Denies abnormal gait, Denies confusion, Reports dizziness, Denies syncope, Reports headache(s) and Denies sensory deficit Psychiatric Psychiatric: Denies confusion PFSH All Active Problems (Updated 12/23/22 @ 15:43 by Abdi Lakhani NP) Concussion (Acute) Palpitations (Acute) PCP trialing metoprolol pill in the pocket 25mg prn for palplitations Colon polyp (Acute) Diverticulosis (Acute) FH: colon cancer (Acute) Discharge planning issues (Acute) DVT prophylaxis (Acute) Chest pain (Acute) DALE (dyspnea on exertion) (Acute) Partial small bowel obstruction (Acute) Obesity (BMI 30-39.9) (Acute) Osteoarthritis (Chronic) HTN (hypertension), benign (Acute) PVCs (premature ventricular contractions) (Acute) Medical History BPH (benign prostatic hyperplasia) GERD (gastroesophageal reflux disease) HLD (hyperlipidemia) CORI (obstructive sleep apnea) TIA (transient ischemic attack) Surgical History H/O arthroscopy of shoulder multiple bilateral arthroscopies H/O bilateral inguinal hernia repair H/O colonoscopy with polypectomy x2; last 6 years ago, a polyp could not be removed H/O hand surgery H/O prostate biopsy History of ankle surgery History of revision of total replacement of left knee joint History of tonsillectomy History of total left hip replacement History of total left knee replacement History of total right hip arthroplasty Rupture of biceps tendon left, s/p repair S/P bilateral cataract extraction S/P right knee arthroscopy Family History Father Heart disease stents placed in the 60's Factor 5 Leiden mutation, heterozygous Hyperlipidemia Hypertension Colon cancer Lung cancer Bladder cancer Sister Factor 5 Leiden mutation, heterozygous Hypertension Cancer with unknown primary site Sister Factor 5 Leiden mutation, heterozygous Hypertension Sister Factor 5 Leiden mutation, heterozygous Brother Factor 5 Leiden mutation, heterozygous Maternal Grandmother Stroke Maternal Uncle Colon cancer Maternal Grandfather Colon cancer Paternal Grandmother Spinal cord cancer Social History Smoking/Tobacco Use Status: Former Tobacco Use Quit Date: 11/30/81 Smoking risk assessment performed?: Yes Alcohol Intake: current Alcohol Intake frequency: holidays/special occasions only Alcohol type: beer Drug use: Never Substance use type: does not use Household members: none Number of Children: 2 Do you feel safe at home: Yes Do you feel safe in your relationship?: Yes Exam Const General: cooperative, healthy appearing, no acute distress and well groomed Orientation: alert, awake and oriented x3 HENMT Head: normal to inspection Ears: hearing grossly normal bilaterally and TM's normal bilaterally Mouth: oral mucosae normal and moist mucous membranes Throat: posterior oropharynx normal Eyes Visual Au: normal visual au by confrontation Alignment and Position: alignment normal Periorbital: periorbital findings normal Eyelids: eyelids normal Sclera: sclerae normal Pupils: PERRL EOM: EOM intact bilaterally Neck Neck: normal visual inspection, full ROM and no meningeal signs Resp Effort & Inspection: normal respiratory effort and able to speak in complete sentences Auscultation: clear to auscultation bilaterally Cardio Rate: regular rate Rhythm: regular rhythm Heart Sounds: S1 normal and S2 normal Neuro General: patient alert, patient awake, patient oriented x3, gait normal, tone normal, moves all extremities, CN's II-XI intact bilaterally and not confused Cognition: normal cognition Speech: speech normal Motor: muscle tone normal throughout, strength 5/5 throughout, no pronator drift, no movement abnormalities noted and no fasciculations Sensory Exam: no sensory deficits noted Coordination: Romberg test normal Course Vital Signs Vital signs: Vital Signs Temperature 36.9 C 12/23/22 14:08 Pulse 63 12/23/22 14:08 Respiratory Rate 18 12/23/22 14:08 Blood Pressure 153/78 H 12/23/22 14:08 Pulse Oximetry 98 12/23/22 14:08 Temperature 36.9 C 12/23/22 14:08 Pulse 63 12/23/22 14:08 Respiratory Rate 18 01/24/23 14:08 Blood Pressure 153/78 H 12/23/22 14:08 Blood Pressure Position Sitting 12/23/22 14:08 Pulse Oximetry 98 12/23/22 14:08 Oxygen Delivery Method Room Air 12/23/22 14:08 Oxygen Flow Rate 0 12/23/22 14:08
== END 2022-12-23 16:54 | disposition home or self-care (01) ==
PROVIDERS: Emergency Provider Nurse Practitioner Family; PCP Internal Medicine
DX: S06.0X0A Concussion without loss of consciousness, initial encounter (principal); I10 Essential (primary) hypertension; X58.XXXA Exposure to other specified factors, initial encounter; Y93.89 Activity, other specified; Y92.59 Other trade areas as the place of occurrence of the external cause
CPT/HCPCS: 99284; 70450; 99282

== ENCOUNTER 2024-11-16 07:05 | Emergency (ER) | payer MEDICARE, SELFPAY ==
[2024-11-16 07:07] VITALS: BP 157/81; PULSE 60; RESP 13; TEMP 37; O2SAT 99
--- NOTE | 2024-11-16 07:28 | ED.GENADUL_ITS ---
Discharge Plan Disposition Patient Disposition: Home Condition: Stable Discharge Details Clinical Impression: Laceration of face Primary Care Provider: Olvin Alicia ED Provider: Brian Hickey [place] Meds and Daniel Rx's Prescriptions: Continued amlodipine 5 mg tablet 5 mg PO DAILY atorvastatin 20 mg tablet 20 mg PO DAILY meloxicam 15 mg tablet 15 mg PO DAILY metoprolol succinate 50 mg tablet extended release 24 hr 50 mg PO DAILY aspirin 325 MG tablet 81 mg PO DAILY tamsulosin [Flomax] 0.4 mg Capsule 0.4 mg PO HS finasteride 5 mg Tablet 5 mg PO DAILY omeprazole 40 mg capsule,delayed release(DR/EC) 40 mg PO DAILY Discharge Instructions Additional Instructions: You have 3 stitches placed to close your wound. If the wound gets dirty you can gently clean with soap and water. Return to the emergency department in 7 to 10 days for evaluation for suture removal. Return sooner if you develop any spreading redness from the wound or yellow-white discharge from the wound or you develop any severe headaches or vomiting. HPI General Mode of arrival: ambulatory . Date/Time Provider Initiated Documentation: 11/16/24 07:06 . Limitations to Documentation: no limitations . Information obtained by: patient . History of Present Illness 69 year old M presents to the emergency department with the chief complaint of lac superior to left orbit, described as mild, Quality is described as aching, and is localized to the face. Patient reports no radiation. Patient started experiencing this hour(s) (1) and it has been constant. No relieving factors improve symptom(s), No exacerbating factors reported . Patient notes no other symptoms.. Related Data Home Medications ?Medication ?Instructions ?Recorded ?Confirmed aspirin 325 mg tablet 81 mg PO DAILY 07/10/16 11/16/24 tamsulosin 0.4 mg capsule (Flomax) 0.4 mg PO HS 08/29/19 11/16/24 finasteride 5 mg tablet 5 mg PO DAILY 08/30/19 11/16/24 amlodipine 5 mg tablet 5 mg PO DAILY 05/14/22 11/16/24 atorvastatin 20 mg tablet 20 mg PO DAILY 05/14/22 11/16/24 meloxicam 15 mg tablet 15 mg PO DAILY 05/14/22 11/16/24 metoprolol succinate 50 mg 50 mg PO DAILY 05/14/22 11/16/24 tablet,extended release 24 hr omeprazole 40 mg capsule,delayed 40 mg PO DAILY 11/16/24 11/16/24 release Allergies Allergy/AdvReac Type Severity Reaction Status Date / Time No Known Allergies Allergy Verified 11/16/24 07:12 General Stated Complaint: Laceration MARIA G: 4 Review of Systems All systems reviewed & are unremarkable except as noted in HPI and below Constitutional Constitutional: Denies weakness Eyes Eyes: Denies loss of vision Cardiovascular Cardiovascular: Denies chest pain and Denies dyspnea Respiratory Respiratory: Denies cough and Denies dyspnea Gastrointestinal Gastrointestinal: Denies abdominal pain, Denies nausea and Denies vomiting Neurologic Neurologic: Denies loss of vision and Denies weakness Exam Const General: no acute distress Orientation: alert HENMT Head: no palpable skull fracture Ears: external ears normal General nose exam: external nose normal Mouth: moist mucous membranes Eyes General: appearance normal, both eyes and all related structures Conjunctivae: conjunctivae normal Pupils: PERRL EOM: EOM intact bilaterally Neck Neck: normal visual inspection, full ROM and nontender Resp Effort & Inspection: normal respiratory effort and able to speak in complete sentences Cardio Rate: regular rate Skin General skin exam: no rashes or lesions noted Neuro General: patient alert and patient oriented x3 Extrem General: normal to inspection Psych Mental Status: mental status grossly normal Course Vital Signs Vital signs: Vital Signs Temperature 37 C 11/16/24 07:07 Pulse 60 11/16/24 07:07 Respiratory Rate 13 11/16/24 07:07 Blood Pressure 157/81 H 11/16/24 07:07 Pulse Oximetry 99 11/16/24 07:07 Temperature 37 C 11/16/24 07:07 Temperature Source Tympanic 11/16/24 07:07 Pulse 60 11/16/24 07:07 Respiratory Rate 13 11/16/24 07:07 Blood Pressure 157/81 H 11/16/24 07:07 Blood Pressure Position Sitting 11/16/24 07:07 Pulse Oximetry 99 11/16/24 07:07 Oxygen Delivery Method Room Air 11/16/24 07:07 Oxygen Flow Rate 0 11/16/24 07:07 Pain Level 6 11/16/24 07:15 Procedures Laceration Laceration 1: Site: face Side (If applicable): left Size (cm): 1 Description: linear Depth: simple, single layer Local anesthetic: Lidocaine 1% and with Epi Amount of anesthesia used (mL): 4 Pre-repair: irrigated extensively Skin layer closed with: nylon Size (cm): 5-0 Number of sutures: 3 Technique: simple, interrupted Medical Decision Making 69-year-old male with a history of hypertension, osteoarthritis, who comes in with a facial laceration. He says he was getting out of bed when he tripped falling forward and hitting his left forehead on the gum locker that he has next to his bed. Denies loss of consciousness, has no severe headaches or vomiting since. He only has mild aching around the laceration he has on his face. He has no swelling of the face, intact extraocular eye movements bilaterally, pupils are equal and reactive to light. No neck tenderness with full range of motion. He denies any chest pain, abdominal pain, back pain or extremity pain. He has a 1 cm laceration superficial that runs vertically on the medial portion of the eyebrow. Given he has no severe headache, no loss of consciousness and no nausea or vomiting since I do not feel imaging of his head is indicated. He has no palpable fractures of his skull so doubt hemorrhage of the brain or skull fracture. No findings on exam to suggest orbital blowout fracture. Will plan for closure with sutures. Wound closed with 3 sutures without complications and he tolerated well. He is stable for discharge advised to return in 7 to 10 days for evaluation for suture removal and sooner if signs of wound infection develop. Differential Diagnosis Differential Diagnosis: Laceration, abrasion Quality:SDOH Health Related Social Needs: No Data to Display PFSH All Active Problems (Updated 11/16/24 @ 07:43 by Brian Hickey MD) Laceration of face (Acute) Palpitations (Acute) PCP trialing metoprolol pill in the pocket 25mg prn for palplitations Colon polyp (Acute) Diverticulosis (Acute) FH: colon cancer (Acute) Discharge planning issues (Acute) DVT prophylaxis (Acute) Chest pain (Acute) DALE (dyspnea on exertion) (Acute) Partial small bowel obstruction (Acute) Obesity (BMI 30-39.9) (Acute) Osteoarthritis (Chronic) HTN (hypertension), benign (Acute) PVCs (premature ventricular contractions) (Acute) Medical History BPH (benign prostatic hyperplasia) GERD (gastroesophageal reflux disease) HLD (hyperlipidemia) CORI (obstructive sleep apnea) TIA (transient ischemic attack) Surgical History H/O arthroscopy of shoulder multiple bilateral arthroscopies H/O bilateral inguinal hernia repair H/O colonoscopy with polypectomy x2; last 6 years ago, a polyp could not be removed H/O hand surgery H/O prostate biopsy History of ankle surgery History of revision of total replacement of left knee joint History of tonsillectomy History of total left hip replacement History of total left knee replacement History of total right hip arthroplasty Rupture of biceps tendon left, s/p repair S/P bilateral cataract extraction S/P right knee arthroscopy Family History Father Heart disease stents placed in the 60's Factor 5 Leiden mutation, heterozygous Hyperlipidemia Hypertension Colon cancer Lung cancer Bladder cancer Sister Factor 5 Leiden mutation, heterozygous Hypertension Cancer with unknown primary site Sister Factor 5 Leiden mutation, heterozygous Hypertension Sister Factor 5 Leiden mutation, heterozygous Brother Factor 5 Leiden mutation, heterozygous Maternal Grandmother Stroke Maternal Uncle Colon cancer Maternal Grandfather Colon cancer Paternal Grandmother Spinal cord cancer Social History Smoking/Tobacco Use Status: Former Tobacco Use Quit Date: 11/30/81 Smoking risk assessment performed?: Yes Alcohol Intake: current Alcohol Intake frequency: holidays/special occasions only Alcohol type: beer Drug use: Never Substance use type: does not use Household members: none Number of Children: 2 Do you feel safe at home: Yes Do you feel safe in your relationship?: Yes
[2024-11-16 07:53] VITALS: BP 154/82; PULSE 52; RESP 15; O2SAT 99
== END 2024-11-16 08:06 | disposition home or self-care (01) ==
LOC: ER 08:01
PROVIDERS: Emergency Provider Emergency Medicine; PCP Internal Medicine
DX: S01.81XA Laceration without foreign body of other part of head, initial encounter (principal); E78.5 Hyperlipidemia, unspecified; Z86.73 Personal history of transient ischemic attack (TIA), and cerebral infarction without residual deficits; Z79.82 Long term (current) use of aspirin; Z87.891 Personal history of nicotine dependence; W01.190A Fall on same level from slipping, tripping and stumbling with subsequent striking against furniture, initial encounter; Y93.89 Activity, other specified; Y92.013 Bedroom of single-family (private) house as the place of occurrence of the external cause
CPT/HCPCS: 12011; 99283

== ENCOUNTER 2024-11-24 15:52 | Emergency (ER) | payer MEDICARE, SELFPAY ==
[2024-11-24 15:53] VITALS: BP 162/85; PULSE 67; TEMP 36.3; O2SAT 98
--- NOTE | 2024-11-24 16:04 | W.ED.GENAD ---
Discharge Plan Disposition Patient Disposition: Home Condition: Stable Discharge Details Clinical Impression: Visit for suture removal Primary Care Provider: Olvin Alicia ED Provider: Roxy Salvador Home Meds and New Rx's Prescriptions: No Action amlodipine 5 mg tablet 5 mg PO DAILY atorvastatin 20 mg tablet 20 mg PO DAILY meloxicam 15 mg tablet 15 mg PO DAILY metoprolol succinate 50 mg tablet extended release 24 hr 50 mg PO DAILY aspirin 325 MG tablet 81 mg PO DAILY tamsulosin [Flomax] 0.4 mg Capsule 0.4 mg PO HS finasteride 5 mg Tablet 5 mg PO DAILY omeprazole 40 mg capsule,delayed release(DR/EC) 40 mg PO DAILY Discharge Instructions Instructions: Stitches Removal Additional Instructions: The scab will fall off on its own in the next 3 to 4 days. Please keep clean and dry. Return for any signs of infection, increased redness swelling drainage or concerns. 3 sutures were removed today. Follow up with primary care provider in 3-5 days if needed. Return to ED sooner if any worsening or concerns. Referrals: Olvin Alicia [Primary Care Provider] - Return if symptoms worsen Discharge Data Discharge Date/Time-TO BE ENTERED AT DEPARTURE: 11/24/24 16:09 HPI General Mode of arrival: ambulatory. Date/Time Provider Initiated Documentation: 11/24/24 15:53. Limitations to Documentation: no limitations. Information obtained by: patient, RN notes reviewed and old records reviewed. HPI Narrative: 69 year old male who presents for suture removal after having 3 simple interrupted sutures placed to his left eyebrow 8 days ago. Denies any problems at home no signs of infection or drainage no swelling denies any headache confusion nausea vomiting or any other associated symptoms. Related Data Home Medications ?Medication ?Instructions ?Recorded ?Confirmed aspirin 325 mg tablet 81 mg PO DAILY 07/10/16 11/24/24 tamsulosin 0.4 mg capsule (Flomax) 0.4 mg PO HS 08/29/19 11/24/24 finasteride 5 mg tablet 5 mg PO DAILY 08/30/19 11/24/24 amlodipine 5 mg tablet 5 mg PO DAILY 05/14/22 11/24/24 atorvastatin 20 mg tablet 20 mg PO DAILY 05/14/22 11/24/24 meloxicam 15 mg tablet 15 mg PO DAILY 05/14/22 11/24/24 metoprolol succinate 50 mg 50 mg PO DAILY 05/14/22 11/24/24 tablet,extended release 24 hr omeprazole 40 mg capsule,delayed 40 mg PO DAILY 11/16/24 11/24/24 release Allergies Allergy/AdvReac Type Severity Reaction Status Date / Time No Known Allergies Allergy Verified 11/24/24 15:53 General Stated Complaint: SutureRem MARAI G: 4 Review of Systems Integumentary/Breasts Skin/Breast: Reports other (Sutured laceration noted to left eyebrow, no surrounding erythema redness) Exam [facility] Head images: 1. Sutured laceration noted with scab formation, wound is well-approximated, no surrounding erythema redness or swelling. 3 simple interrupted sutures removed. Course Vital Signs Vital signs: Vital Signs Temperature 36.3 C L 11/24/24 15:53 Pulse 67 11/24/24 15:53 Blood Pressure 162/85 H 11/24/24 15:53 Pulse Oximetry 98 11/24/24 15:53 Temperature 36.3 C L 11/24/24 15:53 Pulse 67 11/24/24 15:53 Blood Pressure 162/85 H 11/24/24 15:53 Pulse Oximetry 98 11/24/24 15:53 Oxygen Delivery Method Room Air 11/24/24 15:53 Oxygen Flow Rate 0 11/24/24 15:53 Pain Level 0 11/24/24 15:53 Medical Decision Making 69 year old male who presents for suture removal after having 3 simple interrupted sutures placed to his left eyebrow 8 days ago. Denies any problems at home no signs of infection or drainage no swelling denies any headache confusion nausea vomiting or any other associated symptoms. 3 simple interrupted sutures removed, wound well-approximated small scab formation noted. No need for Steri-Strips at this time. Patient discharged with home care and strict return instructions, verbalized understanding. This text was generated using [employer] dictation system, please disregard any oddities of phrase or misspellings. Quality:SDOH Health Related Social Needs: No Data to Display PFSH All Active Problems (Updated 11/24/24 @ 16:07 by Roxy Salvador NP) Visit for suture removal (Acute) Laceration of face (Acute) Palpitations (Acute) PCP trialing metoprolol pill in the pocket 25mg prn for palplitations Colon polyp (Acute) Diverticulosis (Acute) FH: colon cancer (Acute) Discharge planning issues (Acute) DVT prophylaxis (Acute) Chest pain (Acute) DALE (dyspnea on exertion) (Acute) Partial small bowel obstruction (Acute) Obesity (BMI 30-39.9) (Acute) Osteoarthritis (Chronic) HTN (hypertension), benign (Acute) PVCs (premature ventricular contractions) (Acute) Medical History BPH (benign prostatic hyperplasia) GERD (gastroesophageal reflux disease) HLD (hyperlipidemia) CORI (obstructive sleep apnea) TIA (transient ischemic attack) Surgical History H/O arthroscopy of shoulder multiple bilateral arthroscopies H/O bilateral inguinal hernia repair H/O colonoscopy with polypectomy x2; last 6 years ago, a polyp could not be removed H/O hand surgery H/O prostate biopsy History of ankle surgery History of revision of total replacement of left knee joint History of tonsillectomy History of total left hip replacement History of total left knee replacement History of total right hip arthroplasty Rupture of biceps tendon left, s/p repair S/P bilateral cataract extraction S/P right knee arthroscopy Family History Father Heart disease stents placed in the 60's Factor 5 Leiden mutation, heterozygous Hyperlipidemia Hypertension Colon cancer Lung cancer Bladder cancer Sister Factor 5 Leiden mutation, heterozygous Hypertension Cancer with unknown primary site Sister Factor 5 Leiden mutation, heterozygous Hypertension Sister Factor 5 Leiden mutation, heterozygous Brother Factor 5 Leiden mutation, heterozygous Maternal Grandmother Stroke Maternal Uncle Colon cancer Maternal Grandfather Colon cancer Paternal Grandmother Spinal cord cancer Social History Smoking/Tobacco Use Status: Former Tobacco Use Quit Date: 11/30/81 Smoking risk assessment performed?: Yes Alcohol Intake: current Alcohol Intake frequency: holidays/special occasions only Alcohol type: beer Drug use: Never Substance use type: does not use Household members: none Number of Children: 2 Do you feel safe at home: Yes Do you feel safe in your relationship?: Yes
== END 2024-11-24 16:09 | disposition home or self-care (01) ==
LOC: ER 16:11
PROVIDERS: Emergency Provider Registered Nurse Emergency; PCP Internal Medicine
DX: Z48.02 Encounter for removal of sutures (principal)

== ENCOUNTER 2025-02-07 01:04 | Outpatient (CLI) | payer MEDICARE, SELFPAY ==
--- NOTE | 2025-02-07 07:00 | DI.RAD_ITS ---
Exam(s) XR FOOT LT COMPLETE EXAM: XR FOOT LT COMPLETE CLINICAL HISTORY: Left foot pain,m79.672. TECHNIQUE: 2D digital imaging was performed of the left foot. Three images were obtained. AP, obli que and lateral views were obtained. COMPARISON: No exams were available for comparison FINDINGS: BONES: No acute fracture is present. No bony destructive lesion is seen. There is a moderate size ent hesophyte at the posterior calcaneus. There is a small plantar calcaneal spur. There are mild degen erative changes seen at the 1st MTP joint in the toes. At the talonavicular joint, there is joint sp berenice narrowing and osteophytes which reflect arthrosis. There is irregularity of the cortex at this j oint and infection should also be considered. JOINTS: No dislocation present. SOFT TISSUE: Normal. IMPRESSION: 1. Arthrosis of the left foot. 2. Calcaneal spurs. 3. Irregularity of the cortex across the talonavicular joint. While arthrosis should be considered, infection cannot be excluded. Please correlate clinically. DATA REPOSITORY: RADIATION DOSE DELIVERED:
== END 2025-02-07 01:24 ==
PROVIDERS: PCP Internal Medicine; Visit Provider Podiatrist
DX: M79.672 Pain in left foot (principal)
CPT/HCPCS: 73630

== ENCOUNTER 2025-02-28 00:39 | Outpatient (CLI) | payer MEDICARE, SELFPAY ==
--- NOTE | 2025-02-28 06:30 | DI.MRI_ITS ---
Exam(s) MR LOWER EXTREMITY LT WO/W EXAM: MR LOWER EXTREMITY LT WO/W CLINICAL HISTORY: ? TN osteomyelitis,? 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 TECHNIQUE: Multiplanar multisequence MRI of the left foot was performed. CONTRAST MATERIAL: IV Contrast: 20 mL of Dotarem contrast administered. COMPARISON: CR XR FOOT LT COMPLETE from 02/07/2025 FINDINGS: BONES/JOINTS: No fracture or contusion pattern. There is no evidence of a bony coalition between the navicular and the cuboid. At the calcaneocuboid joint, there is subchondral edema present on both kendell es. No joint effusion is seen. At the talonavicular joint, there is edema seen in the subchondral bon e. Subchondral cysts are also noted. There is irregularity of the cortex. No joint effusion is apprec iated. There are marked degenerative changes seen at the ankle joint. There is an enthesophyte at the posterior calcaneus. There is a small plantar calcaneal spur. MUSCULOTENDINOUS STRUCTURES: The muscles show normal signal and size. No muscular fatty atrophy. SOFT TISSUES: Unremarkable. OTHER FINDINGS: Following contrast administration, no enhancing fluid collections are seen to suggest an abscess. IMPRESSION: 1. Findings likely reflective of degenerative changes at the talar navicular joint. No joint effusion or focal fluid collection is seen to suggest an abscess. Infection is considered less likely. 2. No evidence of an osseous coalition between the navicular and the cuboid. 3. Degenerative changes are seen in the ankle and mid and hindfoot. DATA REPOSITORY:
[2025-02-28] MEDS: Gadoterate meglumine 20 ML SYRINGE IVP (08:56)
[2025-02-28] MEDS: Normal Saline Flush 10 ML SYR IVP (08:57)
== END 2025-02-28 00:59 ==
LOC: DI 00:40
PROVIDERS: PCP Family Medicine; Visit Provider Podiatrist
DX: Q66.89 Other specified congenital deformities of feet (principal); M86.9 Osteomyelitis, unspecified
CPT/HCPCS: 73720

== ENCOUNTER → 2025-03-08 09:08 | Outpatient (BNVA) | payer MEDICARE, SELFPAY | PROVIDERS: PCP Family Medicine; Referring Provider Family Medicine; Visit Provider Podiatrist | DX: M79.672 Pain in left foot (principal); M86.9 Osteomyelitis, unspecified; Q66.89 Other specified congenital deformities of feet; M19.172 Post-traumatic osteoarthritis, left ankle and foot; G57.92 Unspecified mononeuropathy of left lower limb; L60.3 Nail dystrophy; B35.1 Tinea unguium | CPT/HCPCS: 20600; J0702; J1100 ==

== ENCOUNTER → 2025-04-11 13:30 | Outpatient (BNVA) | payer MEDICARE, SELFPAY | PROVIDERS: PCP Family Medicine; Referring Provider Family Medicine; Visit Provider Podiatrist ==